=== PATIENT | male | born 1950 | race Caucasian/White ===

== ENCOUNTER → 2016-11-09 | Outpatient (CLI) | payer BC ==
--- NOTE | 2016-11-09 12:00 | ECHOS ---
DATE OF SERVICE: 11/09/2016 AGE: 66Y SEX: M HT: 72 WT: 230 lbs. Protocol Reggie: X Others: Stress Echo Stage: II Dur. of Exercise: 6 minutes *Heart Rate Blood Pressure *Rest: 91 Rest: 167/75 * *Max. Achieved: 151 Maximum BP: 183/93 85% PMHR: 100% PMHR: *METS: INDICATIONS: Chest pain. MEDICATIONS: Baseline rhythm is sinus mechanism, rate of 91, normal axis and intervals, occasional PVCs. Baseline blood pressure 167/75 mmHg. Patient exercised on Reggie protocol for 6 minutes reaching peak rate of 151 beats per minute, which is equal to 97% of maximum predicted heart rate; peak blood pressure 183/93 mmHg. Test was terminated secondary to fatigue. There was no chest pain. Electrocardiographic monitoring revealed occasional PVCs and one triplet at peak exercise. There was no evidence of diagnostic ischemic ST deviation. Baseline echocardiogram revealed normal wall motion. At peak exercise there was normal wall motion augmentation with no hypokinesis or dyskinesis. CONCLUSION: 1. Average exercise tolerance with a normal electrocardiograph response to exercise and occasional premature ventricular contractions and one triplet at peak exercise. 2. Normal stress echocardiogram with no evidence of stress-induced ischemia.
== END | disposition home or self-care (01) ==
LOC: RADNMMAIN 09:55
PROVIDERS: ATTEND Family Medicine
DX: R07.9 Chest pain, unspecified (principal); R53.83 Other fatigue
CPT/HCPCS: 93017; 93350

== ENCOUNTER → 2017-03-25 | Outpatient (CLI) | payer BC ==
[2017-03-25 09:48] LABS: Basophils # (A) 0.1 k/uL (0-0.2); Basophils % (A) 1 %; CH 33.5; CHCM 34.5; Eosinophils # (A) 0.3 k/uL (0-0.7); Eosinophils % (A) 3 %; HCT 51.1 % (39.0-53.0); HDW 2.53; HGB 16.9 gm/dL (13.0-17.5); Luc # (Auto) 0.13; Luc % (Auto) 2; Lymphocytes # (A) 2.2 k/uL (1.0-4.8); Lymphocytes % (A) 27 %; MCH 32.1 pg (25.0-35.0); MCV 97.4 fL (80.0-100.0); Mean Platelet Volume 7.7; Monocytes # (A) 0.5 k/uL (0-1.0); Monocytes % (A) 6 %; Neutrophils % (A) 62 %; RBC 5.25 m/uL (4.30-5.90); RDW 13.7 % (11.5-15.5); WBC 8.1 k/uL (3.8-10.6); WBC (Perox) 7.83
== END ==
LOC: LABWHC1 08:18
PROVIDERS: ATTEND Family Medicine
DX: R10.9 Unspecified abdominal pain (principal)
CPT/HCPCS: 36415; 85025

== ENCOUNTER 2018-03-26 05:35 | Inpatient (IN) | payer BC, MEDICARE ==
[2018-03-26 06:54] LABS: Basophils % (A) 0 %; Eosinophils # (A) 0.2 k/uL (0-0.7); Eosinophils % (A) 1 %; HCT 46.9 % (39.0-53.0); HGB 16.6 gm/dL (13.0-17.5); Lymphocytes # (A) 1.2 k/uL (1.0-4.8); Lymphocytes % (A) 8 %; MCH 32.2 pg (25.0-35.0); MCHC 35.3 g/dL (31.0-37.0); MCV 91.4 fL (80.0-100.0); Monocytes # (A) 0.5 k/uL (0-1.0); Monocytes % (A) 4 %; Neutrophils # (A) 12.2 k/uL (1.3-7.7); Neutrophils % (A) 86 %; Platelet Count 175 k/uL (150-450); RBC 5.13 m/uL (4.30-5.90); RDW 11.9 % (11.5-15.5); WBC 14.2 k/uL (3.8-10.6)
[2018-03-26 06:56] LABS: Appearance,Urine Clear (Clear); Bilirubin,Urine Negative (Negative); Blood,Urine Negative (Negative); Color,Urine Yellow; Glucose,Urine (UA) Negative (Negative); Ketones,Urine 2+ (Negative); Leukocyte Esterase,Urine Negative (Negative); Mucus,Urine Many /hpf; Nitrite,Urine Negative (Negative); PH, Urine 5.5 (5.0-8.0); Protein,Urine 1+ (Negative); RBC,Urine <1 /hpf (0-5); Specific Gravity,Urine 1.026 (1.001-1.035); Urobilinogen,Urine <2.0 mg/dL (<2.0); WBC,Urine <1 /hpf (0-5)
[2018-03-26 07:06] LABS: ALT 32 U/L (21-72); AST 27 U/L (17-59); Albumin 4.3 g/dL (3.5-5.0); Alkaline Phosphatase 45 U/L (38-126); Amylase 52 U/L (30-110); Anion Gap 11 mmol/L; Blood Urea Nitrogen 17 mg/dL (9-20); Calcium 9.7 mg/dL (8.4-10.2); Carbon Dioxide 19 mmol/L (22-30); Chloride 110 mmol/L (98-107); Glucose 140 mg/dL (74-99); Lipase 45 U/L (23-300); Potassium 4.6 mmol/L (3.5-5.1); Sodium 140 mmol/L (137-145); Total Bilirubin 0.9 mg/dL (0.2-1.3); Total Protein 6.8 g/dL (6.3-8.2)
--- NOTE | 2018-03-26 07:19 | XR ---
EXAMINATION TYPE: XR KUB DATE OF EXAM: 03/26/2018 6:56 AM CLINICAL HISTORY: History of diverticulitis with abdominal pain. TECHNIQUE: Two Upright KUB images of the abdomen are obtained. COMPARISON: CT abdomen August 20, 2013 and abdominal x-ray August 19, 2010 FINDINGS: Some paucity of bowel gas is redemonstrated. Gas is seen in nondistended stomach as well as scattered nondistended small and large bowel loops throughout the abdomen and pelvis. Slight S-shape d scoliosis is present. No pneumoperitoneum or suspicious calcification is seen. Facet arthropathy lo wer lumbar levels is noted. Lung bases are clear. IMPRESSION: Overall nonspecific but strongly favor nonobstructive bowel gas pattern.
[2018-03-26] MEDS ORDERED: SODIUM CHLORIDE 0.9% 1,000 ML IV STA (07:41)
[2018-03-26] MEDS ORDERED: ONDANSETRON 4 MG/2 ML VIAL IVP STA (07:45)
[2018-03-26] MEDS ORDERED: HYDROmorphone 1 MG/ML 1 ML SYRINGE IVP STA ×2 (07:45→09:00)
[2018-03-26] MEDS ORDERED: SODIUM CHLORIDE 0.9% 500 ML IV STA (07:46)
--- NOTE | 2018-03-26 07:48 | ED ---
General Adult HPI - General Chief complaint: Abdominal Pain Stated complaint: abd pain Time Seen by Provider: 03/26/18 07:31 Source: patient, family, RN notes reviewed Mode of arrival: ambulatory Limitations: no limitations - History of Present Illness Initial comments: Patient is a pleasant 8 he 7-year-old male presenting to the emergency Department with abdominal discomfort. Patient does have a history of similar symptoms previously associated with diverticulitis. Patient was admitted once in the past for this. Patient has had several episodes of loose stool. Onset of symptoms was around 24 hours ago. Discomfort is starting to become severe. Patient has some associated nausea and vomiting. No fevers. Discomfort is mostly in the umbilical region and inferior. - Related Data Allergies Allergy/AdvReac Type Severity Reaction Status Date / Time No Known Allergies Allergy Verified 03/26/18 05:49 Review of Systems ROS Statement: Those systems with pertinent positive or pertinent negative responses have been documented in the HPI. ROS Other: All systems not noted in ROS Statement are negative. Constitutional: Denies: fever Eyes: Denies: eye pain ENT: Denies: ear pain Respiratory: Denies: cough Cardiovascular: Denies: chest pain Endocrine: Denies: fatigue Gastrointestinal: Reports: abdominal pain, nausea, vomiting, diarrhea Genitourinary: Denies: dysuria Musculoskeletal: Denies: back pain Skin: Denies: rash Neurological: Denies: weakness Past Medical History Past Medical History: Hyperlipidemia, Hypertension Additional Past Medical History / Comment(s): Diverticulitis History of Any Multi-Drug Resistant Organisms: None Reported Past Surgical History: No Surgical Hx Reported Past Psychological History: No Psychological Hx Reported Smoking Status: Former smoker Past Alcohol Use History: Rare Past Drug Use History: Marijuana General Exam Limitations: no limitations General appearance: alert, in no apparent distress Head exam: Present: atraumatic Eye exam: Present: normal appearance Neck exam: Present: normal inspection Respiratory exam: Present: normal lung sounds bilaterally Cardiovascular Exam: Present: regular rate, normal rhythm Expanded Peripheral pulses: 2+: Posterior Tibialis (R), Posterior Tibialis (L), Dorsalis Pedis (R), Dorsalis Pedis (L) GI/Abdominal exam: Present: soft, tenderness (Mild tenderness inferior to the umbilical region), normal bowel sounds. Absent: distended, guarding, rebound, rigid, pulsatile mass Extremities exam: Present: normal inspection Neurological exam: Present: alert Psychiatric exam: Present: normal affect, normal mood Skin exam: Present: normal color Course Vital Signs 03/26/18 03/26/18 03/26/18 05:46 07:57 09:05 Temperature 98.4 F Pulse Rate 53 L 59 L 58 L Respiratory 18 16 16 Rate Blood Pressure 153/85 160/89 141/80 O2 Sat by Pulse 98 100 98 Oximetry - Reevaluation(s) Reevaluation #1: 03/26/18 10:16 Does not meet sepsis criteria Medical Decision Making - Medical Decision Making Patient reevaluated and improved following second dose of IV pain medication. Patient would prefer to stay in the hospital secondary to continued discomfort. Case was discussed in detail with Dr. Mendoza, covering for Dr. Johns, who will admit. Patient and family were updated on results and plan. - Lab Data Result diagrams: 03/26/18 06:43 03/26/18 06:43 Lab Results 03/26/18 03/26/18 03/26/18 Range/Units 06:43 06:43 06:43 WBC 14.2 H (3.8-10.6) k/uL RBC 5.13 (4.30-5.90) m/uL Hgb 16.6 (13.0-17.5) gm/dL Hct 46.9 (39.0-53.0) % MCV 91.4 (80.0-100.0) fL MCH 32.2 (25.0-35.0) pg MCHC 35.3 (31.0-37.0) g/dL RDW 11.9 (11.5-15.5) % Plt Count 175 (150-450) k/uL Neutrophils % 86 % Lymphocytes % 8 % Monocytes % 4 % Eosinophils % 1 % Basophils % 0 % Neutrophils # 12.2 H (1.3-7.7) k/uL Lymphocytes # 1.2 (1.0-4.8) k/uL Monocytes # 0.5 (0-1.0) k/uL Eosinophils # 0.2 (0-0.7) k/uL Basophils # 0.0 (0-0.2) k/uL Sodium 140 (137-145) mmol/L Potassium 4.6 (3.5-5.1) mmol/L Chloride 110 H (98-107) mmol/L Carbon Dioxide 19 L (22-30) mmol/L Anion Gap 11 mmol/L BUN 17 (9-20) mg/dL Creatinine 0.70 (0.66-1.25) mg/dL Est GFR (CKD-EPI)AfAm >90 (>60 ml/min/1.73 sqM) Est GFR (CKD-EPI)NonAf >90 (>60 ml/min/1.73 sqM) Glucose 140 H (74-99) mg/dL Calcium 9.7 (8.4-10.2) mg/dL Total Bilirubin 0.9 (0.2-1.3) mg/dL AST 27 (17-59) U/L ALT 32 (21-72) U/L Alkaline Phosphatase 45 (38-126) U/L Total Protein 6.8 (6.3-8.2) g/dL Albumin 4.3 (3.5-5.0) g/dL Amylase 52 (30-110) U/L Lipase 45 (23-300) U/L Urine Color Yellow Urine Appearance Clear (Clear) Urine pH 5.5 (5.0-8.0) Ur Specific Jay 1.026 (1.001-1.035) Urine Protein 1+ H (Negative) Urine Glucose (UA) Negative (Negative) Urine Ketones 2+ H (Negative) Urine Blood Negative (Negative) Urine Nitrite Negative (Negative) Urine Bilirubin Negative (Negative) Urine Urobilinogen <2.0 (<2.0) mg/dL Ur Leukocyte Esterase Negative (Negative) Urine RBC <1 (0-5) /hpf Urine WBC <1 (0-5) /hpf Urine Mucus Many H (None) /hpf - Radiology Data Radiology results: report reviewed (Computed tomography scan of the abdomen pelvis concerning for mild diverticulitis.), image reviewed (KUB shows no acute process.) Disposition Clinical Impression: Diverticulitis Disposition: ADMITTED IP TO THIS HOSP Is patient prescribed a controlled substance at d/c from ED?: No Referrals: Nathanael Johns MD [Primary Care Provider] - 1-2 days Decision Time: 10:16
--- NOTE | 2018-03-26 09:23 | CT ---
EXAMINATION TYPE: CT abdomen pelvis w con DATE OF EXAM: 03/26/2018 COMPARISON: 08/20/2013 INDICATION: Abdomen pain DLP: 1282.2 mGycm, Automated exposure control for dose reduction was used. CONTRAST: 100 mL of Isovue 300. Study performed without Oral Contrast TECHNIQUE: Axial images were obtained from above the diaphragm to the pubic rami in the axial plane a t 5 mm thick sections. Reconstructed images are reviewed on the computer in the coronal plane. FINDINGS: Limited CT sections are obtained the lung bases. The lung bases are clear. CT ABDOMEN: Liver: Normal Spleen: Normal Pancreas: Normal Adrenal glands: The adrenal glands are normal. Gallbladder: Normal Kidneys: No masses are evident. No hydronephrosis is present. Peripelvic cysts are present on the l eft kidney. Delayed images were obtained through the kidneys, which remain unremarkable. Aorta: Vascular calcification is within the aorta. Mid abdominal aorta measures 2.9 cm. Some minim al fusiform prominence is present. Inferior vena cava: Normal. CT PELVIS: There appears to be some subtle inflammatory change adjacent to scattered diverticulum within the pro ximal sigmoid colon region left lower quadrant. Mild wall thickening of the distal descending colon w ith adjacent diverticulum are present. Correlate for mild diverticulitis. Diverticuli are within the distal sigmoid colon without adjacent inflammatory change or wall thickening. There are additional sc attered diverticuli within the hepatic flexure, transverse colon, descending colon. Study is performe d without oral contrast causing some limitation on evaluation. Appendix: Normal as visualized. Urinary bladder: Normal. Genitourinary structures: Prostate appears slightly prominent with scattered calcification. Osseous structures: No suspicious lytic or sclerotic lesions. Degenerative disc changes present L5-S1 . IMPRESSIONS: 1. Mild acute diverticulitis proximal sigmoid colon
[2018-03-26] MEDS ORDERED: ONDANSETRON 4 MG/2 ML VIAL IVP PRN (10:16)
[2018-03-26] MEDS ORDERED: ACETAMINOPHEN TAB 325 MG TAB PO PRN (10:16)
[2018-03-26] MEDS ORDERED: NALOXONE 0.4 MG/ML 1 ML VIAL IV PRN (10:16)
[2018-03-26] MEDS ORDERED: LEVOFLOXACIN 500MG-D5W PMX 500 MG in DEXTROSE/WATER 1 100ML.BAG IVPB STA (10:17)
[2018-03-26] MEDS ORDERED: metroNIDAZOLE-NS PMX 500 MG in SALINE 1 100ML.BAG IVPB STA (10:18)
[2018-03-26] MEDS: SODIUM CHLORIDE 0.9% 1,000 ML IV SCH ×2 (11:34→17:02)
[2018-03-26] MEDS: HYDROmorphone 1 MG/ML 1 ML SYRINGE IVP PRN ×3 (13:02→21:42)
[2018-03-26] MEDS: metroNIDAZOLE-NS PMX 500 MG in SALINE 1 100ML.BAG IVPB SCH (15:08)
--- NOTE | 2018-03-26 19:01 | P.GSCN ---
History of Present Illness Consult date: 03/26/18 Reason for Consult: Diverticulitis History of present illness: Patient came to the hospital early this morning with a 2-3 day history of lower abdominal pain. He has a history of 3-4 episodes of diverticulitis in the past. One of these episodes didn't require hospitalization. Last colonoscopy 2 -3 years ago. He was nauseated. Had a few small loose stools at home over the last 2 days. No fevers. CAT scan was obtained which revealed mild sigmoid diverticulitis. Patient's white blood cell count was slightly elevated. He is afebrile currently. Patient states his pain is actually for the most part resolved by now. He is somewhat hungry. 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 History of Any Multi-Drug Resistant Organisms: None Reported Past Surgical History: No Surgical Hx Reported Past Psychological History: No Psychological Hx Reported Smoking Status: Never smoker Past Alcohol Use History: Rare Past Drug Use History: Marijuana Medications and Allergies Home Medications Medication Instructions Recorded Confirmed Type Aspirin EC [Ecotrin] 325 mg PO HS 03/26/18 03/26/18 History Atenolol [Tenormin] 50 mg PO HS 03/26/18 03/26/18 History Cholecalciferol [Vitamin D3] 5,000 unit PO HS 03/26/18 03/26/18 History Doxazosin [Cardura] 4 mg PO HS 03/26/18 03/26/18 History Finasteride [Proscar] 5 mg PO HS 03/26/18 03/26/18 History HYDROcodone/APAP 10-325MG [[place] 1 tab PO BID PRN 03/26/18 03/26/18 History 10-325] Loratadine [Claritin] 10 mg PO HS 03/26/18 03/26/18 History Omeprazole 20 mg PO HS 03/26/18 03/26/18 History Rosuvastatin Calcium [Crestor] 40 mg PO HS 03/26/18 03/26/18 History Allergies Allergy/AdvReac Type Severity Reaction Status Date / Time No Known Allergies Allergy Verified 03/26/18 10:43 Surgical - Exam Vital Signs Temp Pulse Resp BP Pulse Ox 98.4 F 53 L 18 153/85 98 03/26/18 05:46 03/26/18 05:46 03/26/18 05:46 03/26/18 05:46 03/26/18 05:46 Physical exam: General: Well-developed, well-nourished HEENT: Normocephalic, sclerae nonicteric Abdomen: Nontender, nondistended Extremities: No edema Neuro: Alert and oriented Results - Labs 03/26/18 06:43 03/26/18 06:43 Abnormal Lab Results - Last 24 Hours (Table) 03/26/18 03/26/18 03/26/18 Range/Units 06:43 06:43 06:43 WBC 14.2 H (3.8-10.6) k/uL Neutrophils # 12.2 H (1.3-7.7) k/uL Chloride 110 H (98-107) mmol/L Carbon Dioxide 19 L (22-30) mmol/L Glucose 140 H (74-99) mg/dL Urine Protein 1+ H (Negative) Urine Ketones 2+ H (Negative) Urine Mucus Many H (None) /hpf Diabetes panel 03/26/18 Range/Units 06:43 Sodium 140 (137-145) mmol/L Potassium 4.6 (3.5-5.1) mmol/L Chloride 110 H (98-107) mmol/L Carbon Dioxide 19 L (22-30) mmol/L BUN 17 (9-20) mg/dL Creatinine 0.70 (0.66-1.25) mg/dL Glucose 140 H (74-99) mg/dL Calcium 9.7 (8.4-10.2) mg/dL AST 27 (17-59) U/L ALT 32 (21-72) U/L Alkaline Phosphatase 45 (38-126) U/L Total Protein 6.8 (6.3-8.2) g/dL Albumin 4.3 (3.5-5.0) g/dL Calcium panel 03/26/18 Range/Units 06:43 Calcium 9.7 (8.4-10.2) mg/dL Albumin 4.3 (3.5-5.0) g/dL Pituitary panel 03/26/18 Range/Units 06:43 Sodium 140 (137-145) mmol/L Potassium 4.6 (3.5-5.1) mmol/L Chloride 110 H (98-107) mmol/L Carbon Dioxide 19 L (22-30) mmol/L BUN 17 (9-20) mg/dL Creatinine 0.70 (0.66-1.25) mg/dL Glucose 140 H (74-99) mg/dL Calcium 9.7 (8.4-10.2) mg/dL Adrenal panel 03/26/18 Range/Units 06:43 Sodium 140 (137-145) mmol/L Potassium 4.6 (3.5-5.1) mmol/L Chloride 110 H (98-107) mmol/L Carbon Dioxide 19 L (22-30) mmol/L BUN 17 (9-20) mg/dL Creatinine 0.70 (0.66-1.25) mg/dL Glucose 140 H (74-99) mg/dL Calcium 9.7 (8.4-10.2) mg/dL Total Bilirubin 0.9 (0.2-1.3) mg/dL AST 27 (17-59) U/L ALT 32 (21-72) U/L Alkaline Phosphatase 45 (38-126) U/L Total Protein 6.8 (6.3-8.2) g/dL Albumin 4.3 (3.5-5.0) g/dL Assessment and Plan (1) Diverticulitis Narrative/Plan: Continue antibiotic. Begin diet. Possible discharge tomorrow on oral antibiotics. Current Visit: Yes Status: Acute Code(s): K57.92 - DVTRCLI OF INTEST, PART UNSP, W/O PERF OR ABSCESS W/O BLEED SNOMED Code(s): 345378313
--- NOTE | 2018-03-26 19:25 | HP ---
HISTORY AND PHYSICAL CHIEF COMPLAINT: A 2-3 day history of diarrhea, abdominal pain with nausea and vomiting. HISTORY OF PRESENT ILLNESS: Another admission for this 67-year-old white male who has mild essential hypertension, but has otherwise been in fairly good health. Several years ago, he had an episode of diverticulitis requiring inpatient antibiotic therapy. Several days ago, he started to have some diarrhea and then he went on to develop lower abdominal pain and then some nausea and vomiting with chills and he came to the emergency room. White count was 14,000 and he was admitted with a diagnosis of diverticulitis. REVIEW OF SYSTEMS: Otherwise unremarkable. He has had no melena, hematochezia, etc. Past medical history, family history, personal and social histories are unremarkable and noncontributory otherwise. At home, he is on: 1. Rosuvastatin. 2. Omeprazole. 3. Loratadine. 4. Vicodin. 5. Finasteride. 6. Doxazosin. 7. Vitamin D3. 8. Atenolol and. 9. Aspirin. He is not allergic to any medication. He does not smoke or drink. PHYSICAL EXAMINATION: Temperature is 98.4. Pulse is 58. Blood pressure is 138/81. In general, appeared to be well-developed, well-nourished, in no acute distress. He is slightly overweight. Face was flushed. Head, ears, eyes, nose, mouth, and throat were normal. Neck veins were not distended. The chest is clear. Cardiac is normal sinus rhythm. The abdomen is slightly distended and he was tender in the lower abdomen. There are no definite masses. Bowel sounds present. EXTREMITIES: Normal. Neurologically, he is intact. He is admitted to the hospital with the diagnoses: 1. Diverticulitis. 2. Hypertension. 3. Hyperlipidemia. 4. Benign prostatic hypertrophy. PLAN: 1. Bed rest. 2. IV fluids. 3. IV antibiotics. 4. General Surgery consult for follow. MMODL / IJN: [id number] /
[2018-03-26] MEDS: DOXAZOSIN 4 MG TAB PO SCH (21:44)
[2018-03-26] MEDS: ASPIRIN 325 MG TAB PO SCH (21:44)
[2018-03-26] MEDS: LORATADINE 10 MG TAB PO SCH (21:44)
[2018-03-26] MEDS: FINASTERIDE 5 MG TAB PO SCH (21:45)
[2018-03-26] MEDS: PANTOPRAZOLE 40 MG TABLET PO SCH (21:45)
[2018-03-26] MEDS: ATENOLOL 50 MG TAB PO SCH (21:45)
[2018-03-27] MEDS: metroNIDAZOLE-NS PMX 500 MG in SALINE 1 100ML.BAG IVPB SCH ×2 (00:15→07:11)
[2018-03-27] MEDS: SODIUM CHLORIDE 0.9% 1,000 ML IV SCH ×3 (06:33→23:13)
[2018-03-27] MEDS: HYDROmorphone 1 MG/ML 1 ML SYRINGE IVP PRN ×2 (06:38→12:16)
[2018-03-27] MEDS: HYDROmorphone 0.5 MG/0.5 ML SYRINGE IVP PRN ×2 (07:13→13:06)
[2018-03-27 07:57] LABS: Basophils % (A) 0 %; Eosinophils # (A) 0.2 k/uL (0-0.7); Eosinophils % (A) 2 %; HCT 41.6 % (39.0-53.0); Lymphocytes # (A) 2.2 k/uL (1.0-4.8); Lymphocytes % (A) 34 %; MCH 31.5 pg (25.0-35.0); MCHC 33.7 g/dL (31.0-37.0); MCV 93.5 fL (80.0-100.0); Monocytes # (A) 0.4 k/uL (0-1.0); Monocytes % (A) 6 %; Neutrophils # (A) 3.7 k/uL (1.3-7.7); Neutrophils % (A) 56 %; Platelet Count 154 k/uL (150-450); RBC 4.45 m/uL (4.30-5.90); RDW 12.2 % (11.5-15.5); WBC 6.7 k/uL (3.8-10.6)
[2018-03-27 08:15] LABS: Anion Gap 8 mmol/L; Blood Urea Nitrogen 12 mg/dL (9-20); Calcium 8.7 mg/dL (8.4-10.2); Carbon Dioxide 22 mmol/L (22-30); Chloride 110 mmol/L (98-107); Glucose 99 mg/dL (74-99); Sodium 140 mmol/L (137-145)
[2018-03-27] MEDS ORDERED: LEVOFLOXACIN 500MG-D5W PMX 500 MG in DEXTROSE/WATER 1 100ML.BAG IVPB SCH (09:00)
[2018-03-27] MEDS ORDERED: HYDROmorphone 1 MG/ML 1 ML SYRINGE IVP PRN (13:29)
--- NOTE | 2018-03-27 14:28 | P.PN ---
<Tiffany Packlinda Hale - Last Filed: 03/27/18 14:11> Subjective Progress Note Date: 03/27/18 67-year-old male sitting up in bed "hungry" patient stated that he did have an episode this morning of lower quadrant abdominal pain needed to have IV dilaudid given this morning states the abdominal, pain is gone has been up ambulating in the hallway tolerating a diet. Patient states he takes Simpson at home for chronic osteoarthritis pain Objective - Vital Signs Vital signs: Vital Signs Temp 99.6 F 03/27/18 06:55 Pulse 50 L 03/27/18 06:55 Resp 16 03/27/18 06:55 BP 125/77 03/27/18 06:55 Pulse Ox 96 03/27/18 06:55 Intake & Output 03/26/18 03/27/18 03/27/18 18:59 06:59 18:59 Intake Total 738 1200 500 Balance 738 1200 500 Weight 102.058 kg 102.058 kg Intake: Intake, IV Titration 700 Amount Sodium Chloride 0.9% 500 600 ml @ 999 mls/hr IV .Q31M [facility] Rx#:[id number] metroNIDAZOLE-NS PMX 500 100 mg In Saline 1 100ml.bag @ 100 mls/hr IVPB Q8HR [facility] Rx#:[id number] Oral 738 500 500 Other: Voiding Method Toilet # Voids 1 2 - Exam Physical exam Pleasant 67-year-old male sitting up in bed appearing in no acute distress Lungs adequate air movement bilaterally on room air Heart S1-S2 audible and regular Abdomen soft nondistended nontender bowel tones present tolerating diet no nausea no vomiting Extremities no edema noted. - Labs CBC & Chem 7: 03/27/18 07:18 03/27/18 07:18 Labs: Abnormal Lab Results - Last 24 Hours (Table) 03/27/18 Range/Units 07:18 Chloride 110 H (98-107) mmol/L Assessment and Plan Assessment: Impression Present on admission bilateral lower abdominal pain suspect due to acute diverticulitis History of prior episodes of diverticulitis CAT scan of pain on admission report indicate mild sigmoid diverticulitis Present on admission leukocytosis Plan Advance diet as tolerated Increase activity Continue Levaquin and Flagyl Pain control Anticipate discharge from a surgical perspective within the next 24 hours Will follow in the outpatient setting The above impression and plan of care have been discussed and directed by signing physician. Caron Pack nurse practitioner acting as scribe for signing physician. <Dewey Walden - Last Filed: 03/27/18 18:00> Objective - Vital Signs Vital signs: Vital Signs Temp 97.8 F 03/27/18 13:45 Pulse 50 L 03/27/18 17:15 Resp 16 03/27/18 17:15 BP 117/63 03/27/18 13:45 Pulse Ox 96 03/27/18 13:45 Intake & Output 03/26/18 03/27/18 03/27/18 18:59 06:59 18:59 Intake Total 738 1200 500 Balance 738 1200 500 Weight 102.058 kg 102.058 kg Intake: Intake, IV Titration 700 Amount Sodium Chloride 0.9% 500 600 ml @ 999 mls/hr IV .Q31M [facility] Rx#:[id number] metroNIDAZOLE-NS PMX 500 100 mg In Saline 1 100ml.bag @ 100 mls/hr IVPB Q8HR [facility] Rx#:[id number] Oral 738 500 500 Other: Voiding Method Toilet # Voids 1 2 3 - Labs CBC & Chem 7: 03/27/18 07:18 03/27/18 07:18 Labs: Abnormal Lab Results - Last 24 Hours (Table) 03/27/18 Range/Units 07:18 Chloride 110 H (98-107) mmol/L Assessment and Plan Assessment: As above. Patient had no pain last night however this morning pain recurred slightly. He is hungry. Asking for solid food. Has passed flatus but no bowel movement. White blood cell count was normal. Low-grade temp. Continue antibiotics. Advance diet to full liquids and further advance tomorrow if tolerating. (1) Diverticulitis Current Visit: Yes Status: Acute Code(s): K57.92 - DVTRCLI OF INTEST, PART UNSP, W/O PERF OR ABSCESS W/O BLEED SNOMED Code(s): 192722128
[2018-03-27] MEDS: metroNIDAZOLE 500 MG TAB PO SCH ×2 (14:44→20:46)
[2018-03-27] MEDS: HYDROcodone/APAP 10-325MG 1 EACH TAB PO PRN (18:27)
[2018-03-27] MEDS: ASPIRIN 325 MG TAB PO SCH (20:45)
[2018-03-27] MEDS: FINASTERIDE 5 MG TAB PO SCH (20:46)
[2018-03-27] MEDS: PANTOPRAZOLE 40 MG TABLET PO SCH (20:46)
[2018-03-27] MEDS: DOXAZOSIN 4 MG TAB PO SCH (20:46)
[2018-03-27] MEDS: LORATADINE 10 MG TAB PO SCH (20:46)
[2018-03-27] MEDS: ATENOLOL 50 MG TAB PO SCH (23:13)
--- NOTE | 2018-03-28 01:50 | P.PN ---
Subjective Progress Note Date: 03/28/18 Principal diagnosis: Acute sigmoid diverticulitis Patient is a 67-year-old male with a known history of hypertension, hyperlipidemia and previous history of diverticulitis came to ER with complaints of abdominal pain mainly in the lower abdomen and left side worsening for the last 2-3 days. Otherwise patient denied any blood in the stool. Patient does have several episodes of loose stool. Patient does have some nausea and o's of vomiting. Denied any recent illnesses or unusual food intake. No commerce of chest pain or shortness of breath. Denied any fever or chills. CT of abdomen pelvis showed mild sigmoid diverticulitis. 03/27/2018 Patient says that his pain is better. No nausea vomiting. No acute overnight issues. Leukocytosis is improving. Patient was started on clear liquids and advance as tolerated. Anticipate discharge next 24 hours. Patient is being continued on antibiotics in the form of Levaquin and Flagyl. All other review of systems negative except the above Current medications reviewed Objective - Vital Signs Vital signs: Vital Signs Temp 98.2 F 03/27/18 23:00 Pulse 53 L 03/27/18 23:00 Resp 18 03/27/18 23:00 BP 133/80 03/27/18 23:00 Pulse Ox 97 03/27/18 23:00 Intake & Output 03/27/18 03/27/18 03/28/18 06:59 18:59 06:59 Intake Total 1200 750 500 Balance 1200 750 500 Weight 102.058 kg Intake: Intake, IV Titration 700 Amount Sodium Chloride 0.9% 500 600 ml @ 999 mls/hr IV .Q31M [facility] Rx#:[id number] metroNIDAZOLE-NS PMX 500 100 mg In Saline 1 100ml.bag @ 100 mls/hr IVPB Q8HR [facility] Rx#:[id number] Oral 500 750 500 Other: Voiding Method Toilet Toilet # Voids 2 3 2 - Exam PHYSICAL EXAMINATION: Patient is lying in the bed comfortably, no acute distress, awake alert and oriented.. HEENT: Normocephalic. Neck is supple. Pupils reactive. Nostrils clear. Oral cavity is moist. Ears reveal no drainage. Neck reveals no JVD, carotid bruits, or thyromegaly. CHEST EXAMINATION: Trachea is central. Symmetrical expansion. Lung dunlap clear to auscultation and percussion. CARDIAC: Normal S1, S2 with no gallops. No murmurs ABDOMEN: Soft. Bowel sounds normal. No organomegaly. No abdominal bruits. Extremities: reveal no edema. No clubbing or cyanosis Neurologically awake, alert, oriented x3 with well-coordinated movements. No focal deficits noted Skin: No rash or skin lesions. Psychiatric: Coperative. Nonsuicidal Musculoskeletal: No joint swelling or deformity. Normal range of motion. - Labs CBC & Chem 7: 03/27/18 07:18 03/27/18 07:18 Labs: Abnormal Lab Results - Last 24 Hours (Table) 03/27/18 Range/Units 07:18 Chloride 110 H (98-107) mmol/L Assessment and Plan Assessment: Acute sigmoid diverticulitis Previous history of diverticulitis Hypertension Hyperlipidemia BPH DVT prophylaxis Plan: Patient be continued on pain medications and antibiotics and IV fluids. Patient will be started on clear liquids and advance as tolerated. General surgery is following. Further recommendations based on the clinical course. Anticipate discharged tomorrow. Time with Patient: Greater than 30
[2018-03-28] MEDS ORDERED: LEVOFLOXACIN 500 MG TAB PO SCH (09:00)
[2018-03-28] MEDS: metroNIDAZOLE 500 MG TAB PO SCH ×2 (09:07→14:59)
[2018-03-28] MEDS: HYDROcodone/APAP 10-325MG 1 EACH TAB PO PRN (09:08)
--- NOTE | 2018-03-28 11:49 | P.PN ---
<Caron Pack - Last Filed: 03/28/18 11:43> Subjective Progress Note Date: 03/28/18 67-year-old male seen this morning. Patient reports having an episode last evening diffuse abdominal pain requiring [place] be given . Additionally patient reports this morning had another incident of abdominal cramping states was given [place] at 9 AM this morning with no significant relief. Patient states he did have a small loose watery bowel movement small amounts morning no nausea tolerating a diet active bowel tones present nondistended abdomen Objective - Vital Signs Vital signs: Vital Signs Temp 98.3 F 03/28/18 07:00 Pulse 54 L 03/28/18 07:00 Resp 18 03/28/18 07:00 BP 133/81 03/28/18 07:00 Pulse Ox 96 03/28/18 07:00 Intake & Output 03/27/18 03/28/18 03/28/18 18:59 06:59 18:59 Intake Total 750 800 Balance 750 800 Weight 102.058 kg Intake: Oral 750 800 Other: Voiding Method Toilet Toilet # Voids 3 2 - Exam Physical exam 67-year-old male sitting up in bed appears in no acute distress does report had an incident this morning of abdominal cramping Lungs adequate air movement bilaterally on room air Heart S1-S2 audible regular abdomen soft not distended no facial grimacing with palpitation to the abdominal wall reports having diffuse abdominal cramping slightly improved from admission but continues to persist no nausea no vomiting 1 small loose watery stool this morning per patient report Extremities no edema - Labs CBC & Chem 7: 03/27/18 07:18 03/27/18 07:18 Assessment and Plan Assessment: Impression Present on admission bilateral lower abdominal pain suspect due to acute diverticulitis History of prior episodes of diverticulitis CAT scan of pain on admission report indicate mild sigmoid diverticulitis Present on admission leukocytosis Plan Advance diet as tolerated Increase activity Continue Levaquin and Flagyl Pain control Anticipate discharge from a surgical perspective within the next 24 - 48 hours Will follow in the outpatient setting The above impression and plan of care have been discussed and directed by signing physician. Caron Pack nurse practitioner acting as scribe for signing physician. <Dewey Walden - Last Filed: 03/28/18 12:15> Objective - Vital Signs Vital signs: Vital Signs Temp 98.3 F 03/28/18 07:00 Pulse 54 L 03/28/18 07:00 Resp 18 03/28/18 07:00 BP 133/81 03/28/18 07:00 Pulse Ox 96 03/28/18 07:00 Intake & Output 03/27/18 03/28/18 03/28/18 18:59 06:59 18:59 Intake Total 750 800 Balance 750 800 Weight 102.058 kg Intake: Oral 750 800 Other: Voiding Method Toilet Toilet # Voids 3 2 - Labs CBC & Chem 7: 03/27/18 07:18 03/27/18 07:18 Assessment and Plan Assessment: Patient doing well at this time. Pain improved. Tolerating diet. Agree with plans for discharge. Outpatient follow-up in 2-3 weeks advised. (1) Diverticulitis Current Visit: Yes Status: Acute Code(s): K57.92 - DVTRCLI OF INTEST, PART UNSP, W/O PERF OR ABSCESS W/O BLEED SNOMED Code(s): 314693993
[2018-03-28 15:08] VITALS: BP 137/72; PULSE 51; RESP 16; TEMP 97.7
== END 2018-03-28 15:08 | disposition home or self-care (01) | DRG 392 ==
LOC: EC 05:35 → 4MS4W 10:16
PROVIDERS: ADMIT Family Medicine; ATTEND Family Medicine
DX: K57.32 Diverticulitis of large intestine without perforation or abscess without bleeding (principal); E78.5 Hyperlipidemia, unspecified; G89.29 Other chronic pain; I10 Essential (primary) hypertension; M19.90 Unspecified osteoarthritis, unspecified site; N40.0 Benign prostatic hyperplasia without lower urinary tract symptoms; Z79.82 Long term (current) use of aspirin; Z87.891 Personal history of nicotine dependence
CPT/HCPCS: 36415; 74018; 74177; 80048; 80053; 81001; 82150; 83690; 85025; 96361; 96374; 96375; 96376; 99285

== ENCOUNTER 2018-11-21 06:14 | Inpatient (IN) | payer MEDICARE ==
[2018-11-21] MEDS ORDERED: SODIUM CHLORIDE 0.9% 1,000 ML IV STA (06:22)
[2018-11-21] MEDS ORDERED: HYDROmorphone 0.5 MG/0.5 ML SYRINGE IVP STA (06:49)
--- NOTE | 2018-11-21 06:59 | ED ---
Abdominal Pain HPI - General Source: patient Mode of arrival: ambulatory Limitations: no limitations <Kelly Nelson - Last Filed: 11/21/18 08:27> <Josh Stein - Last Filed: 11/21/18 09:17> - General Chief Complaint: Abdominal Pain Stated Complaint: Diverticulitis Complications Time Seen by Provider: 11/21/18 06:21 - History of Present Illness Initial Comments: He is a 68-year-old gentleman with a past medical history of recurrent diverticulitis for which she was hospitalized in March of last year, since that time he has had a couple of episodes of left lower quadrant abdominal pain for which she is followed with his primary care physician on outpatient basis. Patient reports that he woke at 3 AM on Saturday morning with severe stabbing pain in the left lower quadrant he had nausea, vomiting and diarrhea at that time. He reports that he called his primary care physician and made an appointment for 9 AM today however since onset of symptoms she is progressively worsened and this morning the pain became unbearable prompted him to come to the ER for evaluation. Patient reports that the nausea is still present he has not been eating or drinking much so they vomiting has decreased and he is noticed that the diarrhea has slowed down. Diarrhea was nonbloody in nature. However the pain is progressively worsening and is not controlled with home medications. She reports that he has previously been evaluated by surgery and there has been discussion of possible colectomy due to the recurrent episodes of diverticulitis however he has not followed up in a number of months. (Kelly Nelson) - Related Data Home Medications Medication Instructions Recorded Confirmed Aspirin EC [Ecotrin] 325 mg PO HS 03/26/18 11/21/18 Atenolol [Tenormin] 50 mg PO HS 03/26/18 11/21/18 Cholecalciferol [Vitamin D3] 5,000 unit PO HS 03/26/18 11/21/18 Doxazosin [Cardura] 4 mg PO HS 03/26/18 11/21/18 Finasteride [Proscar] 5 mg PO HS 03/26/18 11/21/18 HYDROcodone/APAP 10-325MG [[place] 1 tab PO BID PRN 03/26/18 11/21/18 10-325] Loratadine [Claritin] 10 mg PO HS 03/26/18 11/21/18 Omeprazole 20 mg PO HS 03/26/18 11/21/18 Rosuvastatin Calcium [Crestor] 40 mg PO HS 03/26/18 11/21/18 Allergies Allergy/AdvReac Type Severity Reaction Status Date / Time No Known Allergies Allergy Verified 11/21/18 07:44 Review of Systems ROS Other: All systems not noted in ROS Statement are negative. <Kelly Nelson - Last Filed: 11/21/18 08:27> ROS Other: All systems not noted in ROS Statement are negative. <Josh Stein - Last Filed: 11/21/18 09:17> ROS Statement: Those systems with pertinent positive or pertinent negative responses have been documented in the HPI. Past Medical History Past Medical History: Hyperlipidemia, Hypertension Additional Past Medical History / Comment(s): arthritis, Diverticulitis, m elenoma on arm History of Any Multi-Drug Resistant Organisms: None Reported Past Surgical History: No Surgical Hx Reported Past Psychological History: No Psychological Hx Reported Smoking Status: Never smoker Past Alcohol Use History: Rare Past Drug Use History: Marijuana <Kelly Nelson - Last Filed: 11/21/18 08:27> General Exam Limitations: no limitations <Kelly Nelson - Last Filed: 11/21/18 08:27> - General Exam Comments Initial Comments: Physical Exam GENERAL: Patient is well-developed and well-nourished. Patient is nontoxic and well-hydrated, appears uncomfortable HENT: Normocephalic, Atraumatic. EYES: PERRL, EOMI PULMONARY: Unlabored respirations. No audible rales rhonchi or wheezing was noted. CARDIOVASCULAR: There is a regular rate and rhythm without any murmurs gallops or rubs. ABDOMEN: Soft Tender to palpation LLQ and suprapubic region SKIN: Skin is clear with no lesions or rashes and otherwise unremarkable. : Deferred NEUROLOGIC: Patient is alert and oriented x3. Moving all extremities spontaneously MUSCULOSKELETAL: Normal extremities with adequate strength and full range of motion. No lower extremity swelling or edema. No calf tenderness. PSYCHIATRIC: Normal psychiatric evaluation. Limitations: no limitations (Kelly Nelson) Course <Josh Stein - Last Filed: 11/21/18 09:17> Vital Signs 11/21/18 11/21/18 06:23 07:36 Temperature 97.8 F 96.9 F L Pulse Rate 53 L 60 Respiratory 16 20 Rate Blood Pressure 139/87 141/84 O2 Sat by Pulse 98 98 Oximetry - Reevaluation(s) Reevaluation #1: 11/21/18 09:16 The patient's case was endorsed me by Dr. Nelson at our shift change. Labs are pending Dr. Johns did come the emergency department see the patient patient will be admitted for evaluation and treatment of suspected diverticulitis and intractable abdominal pain (Josh Stein) Medical Decision Making - Lab Data Result diagrams: 11/21/18 06:45 <Kelly Nelson - Last Filed: 11/21/18 08:27> - Lab Data Result diagrams: 11/21/18 06:45 - Radiology Data Radiology results: report reviewed (Imaging was nonspecific no definite acute findings.), image reviewed <Josh Stein - Last Filed: 11/21/18 09:17> - Medical Decision Making Patient was seen and evaluated history is obtained from the patient and review of medical record History concerning for recurrent diverticulitis Labs and imaging were ordered CT scan reveals no acute findings CBC was unremarkable Lactic acid negative UA with no signs of infection Patient care was discussed with Dr. Johns, patient with intractable abdominal pain, no signs of diverticulitis on CT - CMP, Lipase and amylase pending Dr Stein to follow up on labs and disposition (Kelly Nelson) - Lab Data Lab Results 11/21/18 11/21/18 11/21/18 Range/Units 06:45 06:45 07:40 WBC 8.7 (3.8-10.6) k/uL RBC 5.29 (4.30-5.90) m/uL Hgb 17.0 (13.0-17.5) gm/dL Hct 50.1 (39.0-53.0) % MCV 94.7 (80.0-100.0) fL MCH 32.1 (25.0-35.0) pg MCHC 33.9 (31.0-37.0) g/dL RDW 12.3 (11.5-15.5) % Plt Count 185 (150-450) k/uL Neutrophils % 73 % Lymphocytes % 17 % Monocytes % 8 % Eosinophils % 1 % Basophils % 0 % Neutrophils # 6.4 (1.3-7.7) k/uL Lymphocytes # 1.4 (1.0-4.8) k/uL Monocytes # 0.7 (0-1.0) k/uL Eosinophils # 0.1 (0-0.7) k/uL Basophils # 0.0 (0-0.2) k/uL Plasma Lactic Acid Tom 1.6 (0.7-2.0) mmol/L Urine Color Yellow Urine Appearance Clear (Clear) Urine pH 6.0 (5.0-8.0) Ur Specific [place] >1.050 H (1.001-1.035) Urine Protein Trace H (Negative) Urine Glucose (UA) Negative (Negative) Urine Ketones 1+ H (Negative) Urine Blood Negative (Negative) Urine Nitrite Negative (Negative) Urine Bilirubin Negative (Negative) Urine Urobilinogen <2.0 (<2.0) mg/dL Ur Leukocyte Esterase Negative (Negative) Disposition Is patient prescribed a controlled substance at d/c from ED?: No <Kelly Nelson - Last Filed: 11/21/18 08:27> <Josh Stein - Last Filed: 11/21/18 09:17> Clinical Impression: Abdominal pain, Intractable abdominal pain Disposition: ADMITTED IP TO THIS HOSP Condition: Stable Referrals: Nathanael Johns MD [Primary Care Provider] - 1-2 days
[2018-11-21 07:01] LABS: Basophils % (A) 0 %; Eosinophils # (A) 0.1 k/uL (0-0.7); Eosinophils % (A) 1 %; HCT 50.1 % (39.0-53.0); Lymphocytes # (A) 1.4 k/uL (1.0-4.8); Lymphocytes % (A) 17 %; MCH 32.1 pg (25.0-35.0); MCHC 33.9 g/dL (31.0-37.0); MCV 94.7 fL (80.0-100.0); Mean Platelet Volume 10.1; Monocytes # (A) 0.7 k/uL (0-1.0); Monocytes % (A) 8 %; Neutrophils # (A) 6.4 k/uL (1.3-7.7); Neutrophils % (A) 73 %; Platelet Count 185 k/uL (150-450); RBC 5.29 m/uL (4.30-5.90); RDW 12.3 % (11.5-15.5); WBC 8.7 k/uL (3.8-10.6)
--- NOTE | 2018-11-21 07:43 | CT ---
EXAMINATION TYPE: CT abdomen pelvis w con DATE OF EXAM: 11/21/2018 COMPARISON: 03/26/2018 HISTORY: Pain CT DLP: 1162.3 mGycm CONTRAST: CT scan of the abdomen and pelvis is performed without Oral Contrast and with IV Contrast, patient in jected with 100 mL of Isovue 300. FINDINGS: LUNG BASES-: No visible nodule. No infiltrate. LIVER/GB: No calcified gallstones. Mild hepatic steatosis. No space occupying hepatic lesion. Bilia ry tree is of normal caliber. PANCREAS: No inflammation. No distinct mass. SPLEEN: No splenic enlargement. No lesion seen. ADRENALS: Thickening adrenal glands may reflect hyperplasia. KIDNEYS/BLADDER: No hydronephrosis. No nephrolithiasis. No distinct renal mass. Urinary bladder g rossly unremarkable. BOWEL: Scattered colonic diverticulosis without diverticulitis. Normal appendix. Normal bowel calibe r. No inflammation. GENITAL ORGANS: No gross abnormality. LYMPH NODES: No greater than 1cm abdominal or pelvic lymph nodes are appreciated. AORTA: No significant abnormality. OSSEOUS STRUCTURES: Severe degenerative changes lower lumbar spine. OTHER: No significant additional abnormality is seen. IMPRESSION: 1. No acute process identified to account for the patient's symptoms. Sigmoid diverticulosis without diverticulitis. Hepatic steatosis.
[2018-11-21] MEDS ORDERED: HYDROmorphone 1 MG/ML 1 ML SYRINGE IVP STA (07:49)
[2018-11-21 07:53] LABS: Appearance,Urine Clear (Clear); Bilirubin,Urine Negative (Negative); Blood,Urine Negative (Negative); Color,Urine Yellow; Glucose,Urine (UA) Negative (Negative); Ketones,Urine 1+ (Negative); Leukocyte Esterase,Urine Negative (Negative); Nitrite,Urine Negative (Negative); Protein,Urine Trace (Negative); Urobilinogen,Urine <2.0 mg/dL (<2.0)
[2018-11-21 08:42] LABS: Specific Gravity,Urine >1.050 (1.001-1.035)
[2018-11-21] MEDS ORDERED: NALOXONE 0.4 MG/ML 1 ML VIAL IV PRN (09:17)
[2018-11-21 10:40] LABS: ALT 47 U/L (21-72); AST 35 U/L (17-59); Albumin 3.4 g/dL (3.5-5.0); Alkaline Phosphatase 32 U/L (38-126); Amylase <30 U/L (30-110); Anion Gap 7 mmol/L; Blood Urea Nitrogen 19 mg/dL (9-20); Carbon Dioxide 21 mmol/L (22-30); Chloride 113 mmol/L (98-107); Glucose 106 mg/dL (74-99); Lipase 36 U/L (23-300); Potassium 3.7 mmol/L (3.5-5.1); Sodium 141 mmol/L (137-145); Total Bilirubin 0.5 mg/dL (0.2-1.3); Total Protein 5.5 g/dL (6.3-8.2)
[2018-11-21] MEDS: HYDROmorphone 0.5 MG/0.5 ML SYRINGE IVP PRN ×4 (10:46→21:28)
[2018-11-21] MEDS: SODIUM CHLORIDE 0.9% 1,000 ML IV SCH ×2 (10:47→18:33)
[2018-11-21] MEDS: metroNIDAZOLE-NS PMX 500 MG in SALINE 1 100ML.BAG IVPB SCH (16:48)
[2018-11-21] MEDS: ceFAZolin (PMX-bag) 1,000 MG in DEXTROSE/WATER 1 50ML.BAG IVPB SCH (18:11)
--- NOTE | 2018-11-21 19:35 | HP ---
HISTORY AND PHYSICAL CHIEF COMPLAINT: One-day history of left lower quadrant abdominal pain and history of diverticulitis. SUMMARY OF HISTORY OF PRESENT ILLNESS: This gentleman developed a sudden onset of left lower mid lower abdominal pain with fever chills and nausea and vomiting. He has had chills and fever. Came to the emergency room where he was admitted. REVIEW OF SYSTEMS: He has had no headaches, neurologic problems, chest pain, shortness of breath, cough, hemoptysis, nausea, vomiting, hematemesis, melena, hematochezia, jaundice, renal failure, and diabetes, etc. He does have a history of hypertension and arthritis. He is not allergic to any medication. He is on finasteride, doxazosin, rosuvastatin, atenolol, omeprazole, vitamin D3, Vicodin, aspirin, and Claritin. The remainder of his history is unremarkable. He has had several episodes of diverticulitis. PHYSICAL EXAMINATION: Blood pressure 124/80, pulse of 80, respirations 16 and he is afebrile. In general, he appeared to be well developed, well nourished, in no acute distress. Skin color is normal. Skin is warm, dry. Lymph nodes are not enlarged. Head, ears, eyes, nose, mouth and throat were normal. Neck veins are not distended. Thyroid is not enlarged. Chest is clear. Cardiac exam is normal. The abdomen is tender in the lower half and toward the left lower quadrant with some guarding. Bowel sounds present. Extremities normal. Neurological is intact. IMPRESSION: 1. Acute diverticulitis. 2. History of hypertension. 3. History of hyperlipidemia. 4. Benign prostatic hypertrophy. PLAN: 1. Bed rest. 2. IV fluids. 3. IV antibiotics. 4. Surgical consult. MMODL / IJN: [id number] /
[2018-11-22] MEDS: ceFAZolin (PMX-bag) 1,000 MG in DEXTROSE/WATER 1 50ML.BAG IVPB SCH ×5 (00:19→23:10)
[2018-11-22] MEDS: metroNIDAZOLE-NS PMX 500 MG in SALINE 1 100ML.BAG IVPB SCH ×3 (00:20→16:00)
[2018-11-22] MEDS: SODIUM CHLORIDE 0.9% 1,000 ML IV SCH ×4 (00:29→20:32)
[2018-11-22] MEDS: HYDROmorphone 0.5 MG/0.5 ML SYRINGE IVP PRN ×6 (00:32→20:26)
[2018-11-22] MEDS: PANTOPRAZOLE 40 MG/10 ML VIAL IV SCH (08:01)
--- NOTE | 2018-11-22 08:44 | P.GSCN ---
History of Present Illness Consult date: 11/22/18 Reason for Consult: Abdominal pain History of present illness: 68-year-old male known to our service. Patient was hospitalized in March. Patient at that time had complaints of left lower quadrant abdominal pain. CAT scan at that time showed subtle thickening suspected in the sigmoid colon. Patient reports a history of diverticulitis in the past. His CAT scan does demonstrate pandiverticulosis. Last colonoscopy 3 years ago. This time the patient states he developed bad of vomiting episodes with significant diarrhea. He was having mid abdominal pain that radiated to the lower abdomen. No rectal bleeding. Diarrhea and vomiting have improved. Still having some pain apparently. CAT scan this admission shows again diverticulosis however no significant inflammatory changes identified. Patient's white blood cell count is normal. He is afebrile without tachycardia. 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 Mother Family Medical History: Dementia Additional Family Medical History / Comment(s): Mother is 85 yrs old. Medications and Allergies Home Medications Medication Instructions Recorded Confirmed Type Aspirin EC [Ecotrin] 325 mg PO HS 03/26/18 11/21/18 History Atenolol [Tenormin] 50 mg PO HS 03/26/18 11/21/18 History Cholecalciferol [Vitamin D3] 5,000 unit PO HS 03/26/18 11/21/18 History Doxazosin [Cardura] 4 mg PO HS 03/26/18 11/21/18 History Finasteride [Proscar] 5 mg PO HS 03/26/18 11/21/18 History HYDROcodone/APAP 10-325MG [[place] 1 tab PO BID PRN 03/26/18 11/21/18 History 10-325] Loratadine [Claritin] 10 mg PO HS 03/26/18 11/21/18 History Omeprazole 20 mg PO HS 03/26/18 11/21/18 History Rosuvastatin Calcium [Crestor] 40 mg PO HS 03/26/18 11/21/18 History Allergies Allergy/AdvReac Type Severity Reaction Status Date / Time No Known Allergies Allergy Verified 11/21/18 07:44 Surgical - Exam Vital Signs Temp Pulse Resp BP Pulse Ox 97.8 F 53 L 16 139/87 98 11/21/18 06:23 11/21/18 06:23 11/21/18 06:23 11/21/18 06:23 11/21/18 06:23 Physical exam: General: Well-developed, well-nourished HEENT: Normocephalic, sclerae nonicteric Abdomen: Mild mid abdominal tenderness, nondistended Extremities: No edema Neuro: Alert and oriented Results - Labs 11/21/18 06:45 11/21/18 10:00 Abnormal Lab Results - Last 24 Hours (Table) 11/21/18 11/21/18 Range/Units 07:40 10:00 Chloride 113 H (98-107) mmol/L Carbon Dioxide 21 L (22-30) mmol/L Creatinine 0.59 L (0.66-1.25) mg/dL Glucose 106 H (74-99) mg/dL Calcium 8.0 L (8.4-10.2) mg/dL Alkaline Phosphatase 32 L (38-126) U/L Total Protein 5.5 L (6.3-8.2) g/dL Albumin 3.4 L (3.5-5.0) g/dL Amylase <30 L (30-110) U/L Ur Specific [place] >1.050 H (1.001-1.035) Diabetes panel 11/21/18 Range/Units 10:00 Sodium 141 (137-145) mmol/L Potassium 3.7 (3.5-5.1) mmol/L Chloride 113 H (98-107) mmol/L Carbon Dioxide 21 L (22-30) mmol/L BUN 19 (9-20) mg/dL Creatinine 0.59 L (0.66-1.25) mg/dL Glucose 106 H (74-99) mg/dL Calcium 8.0 L (8.4-10.2) mg/dL AST 35 (17-59) U/L ALT 47 (21-72) U/L Alkaline Phosphatase 32 L (38-126) U/L Total Protein 5.5 L (6.3-8.2) g/dL Albumin 3.4 L (3.5-5.0) g/dL Calcium panel 11/21/18 Range/Units 10:00 Calcium 8.0 L (8.4-10.2) mg/dL Albumin 3.4 L (3.5-5.0) g/dL Pituitary panel 11/21/18 Range/Units 10:00 Sodium 141 (137-145) mmol/L Potassium 3.7 (3.5-5.1) mmol/L Chloride 113 H (98-107) mmol/L Carbon Dioxide 21 L (22-30) mmol/L BUN 19 (9-20) mg/dL Creatinine 0.59 L (0.66-1.25) mg/dL Glucose 106 H (74-99) mg/dL Calcium 8.0 L (8.4-10.2) mg/dL Adrenal panel 11/21/18 Range/Units 10:00 Sodium 141 (137-145) mmol/L Potassium 3.7 (3.5-5.1) mmol/L Chloride 113 H (98-107) mmol/L Carbon Dioxide 21 L (22-30) mmol/L BUN 19 (9-20) mg/dL Creatinine 0.59 L (0.66-1.25) mg/dL Glucose 106 H (74-99) mg/dL Calcium 8.0 L (8.4-10.2) mg/dL Total Bilirubin 0.5 (0.2-1.3) mg/dL AST 35 (17-59) U/L ALT 47 (21-72) U/L Alkaline Phosphatase 32 L (38-126) U/L Total Protein 5.5 L (6.3-8.2) g/dL Albumin 3.4 L (3.5-5.0) g/dL Assessment and Plan (1) Abdominal pain Narrative/Plan: Patient admitted for symptoms of abdominal pain. Both the patient's CAT scan and his history do not support the diagnosis of diverticulitis at this time. Suspect possible gastroenteritis. Slowly advance diet. Minimize analgesics. Home when tolerating diet and pain improved. Current Visit: Yes Status: Acute Code(s): R10.9 - UNSPECIFIED ABDOMINAL PAIN [place] Code(s): 68671240
--- NOTE | 2018-11-22 15:20 | PN ---
PROGRESS NOTE DATE OF SERVICE: 11/22/2018 CHIEF COMPLAINT: Abdominal pain. HISTORY OF PRESENT ILLNESS: This gentleman is still having pain. It is more generalized and it moves about. It is not restricted to the lower abdomen or left lower quadrant. Temperature is down. This is looking less and less like diverticulitis. He has a brother who had an unusual GI issue that resulted in lesions in his stomach penetrating through and some attaching to the colon. They are going to look into exactly what this was. PHYSICAL EXAMINATION: His abdomen is slightly distended and he has generalized mild tenderness. Bowel sounds are present. He is afebrile. IMPRESSION: 1. Abdominal pain, etiology unknown. 2. Hypertension. PLAN: GI consult. MMODL / IJN: [id number] /
[2018-11-22] MEDS ORDERED: ONDANSETRON 4 MG/2 ML VIAL IVP PRN (18:18)
[2018-11-23] MEDS: metroNIDAZOLE-NS PMX 500 MG in SALINE 1 100ML.BAG IVPB SCH ×3 (00:26→16:38)
[2018-11-23] MEDS: ceFAZolin (PMX-bag) 1,000 MG in DEXTROSE/WATER 1 50ML.BAG IVPB SCH ×3 (05:56→17:42)
[2018-11-23] MEDS: HYDROmorphone 0.5 MG/0.5 ML SYRINGE IVP PRN ×4 (06:01→19:48)
--- NOTE | 2018-11-23 08:38 | P.PN ---
Subjective Progress Note Date: 11/23/18 Principal diagnosis: Abdominal pain Patient states his pain is slightly increased today. States it is still moving from the midabdomen to bilateral lower quadrants. Tolerating clears. Asking for pain medications fairly regularly. He is afebrile. Morning labs pending. Small amount of flatus. No significant bowel function. Objective - Vital Signs Vital signs: Vital Signs Temp 97.6 F 11/23/18 05:23 Pulse 55 L 11/23/18 05:23 Resp 16 11/23/18 05:23 BP 142/76 11/23/18 05:23 Pulse Ox 99 11/23/18 05:23 Intake & Output 11/22/18 11/23/18 11/23/18 18:59 06:59 18:59 Intake Total 1000 Balance 1000 Intake: Intake, IV Titration 1000 Amount Sodium [place] 0.9% 1, 800 000 ml @ 125 mls/hr IV . Q8H CHARISMA Rx#:[id number] ceFAZolin 1,000 mg In 100 Dextrose/Water 1 50ml.bag @ 100 mls/hr IVPB Q6HR CHARISMA Rx#:[id number] metroNIDAZOLE-NS PMX 500 100 mg In Saline 1 100ml.bag @ 100 mls/hr IVPB Q8HR CHARISMA Rx#:[id number] Other: # Voids 3 - Exam Abdomen: Soft, nondistended, mild mid abdominal and lower abdominal tenderness, no rebound or guarding - Labs CBC & Chem 7: 11/21/18 06:45 11/21/18 10:00 Labs: Microbiology - Last 24 Hours (Table) 11/21/18 06:45 Blood Culture - Preliminary Blood No Growth after 24 hours Assessment and Plan (1) Abdominal pain Narrative/Plan: Patient still having abdominal pain. Continue advancing diet as tolerated. Ambulate. GI consult pending. Check morning labs. We'll check influenza swab. Current Visit: Yes Status: Acute Code(s): R10.9 - UNSPECIFIED ABDOMINAL PAIN SNOMED Code(s): 23739273
[2018-11-23 09:43] LABS: Basophils % (A) 0 %; Eosinophils # (A) 0.2 k/uL (0-0.7); Eosinophils % (A) 3 %; HGB 15.6 gm/dL (13.0-17.5); Lymphocytes # (A) 1.8 k/uL (1.0-4.8); Lymphocytes % (A) 25 %; MCHC 34.6 g/dL (31.0-37.0); MCV 92.4 fL (80.0-100.0); Mean Platelet Volume 6.9; Monocytes # (A) 0.5 k/uL (0-1.0); Monocytes % (A) 7 %; Neutrophils # (A) 4.5 k/uL (1.3-7.7); Neutrophils % (A) 63 %; Platelet Count 157 k/uL (150-450); RBC 4.87 m/uL (4.30-5.90); RDW 11.8 % (11.5-15.5); WBC 7.2 k/uL (3.8-10.6)
[2018-11-23] MEDS: PANTOPRAZOLE 40 MG/10 ML VIAL IV SCH (10:04)
[2018-11-23] MEDS: SODIUM CHLORIDE 0.9% 1,000 ML IV SCH ×2 (11:10→17:43)
--- NOTE | 2018-11-23 15:15 | PN ---
PROGRESS NOTE DATE OF SERVICE: 11/23/2018. CHIEF COMPLAINT: Abdominal pain and possible diverticulitis. HISTORY OF PRESENT ILLNESS: This gentleman continues to be about the same. He is having mild and transient fleeting abdominal pain. Temperature has been down. The picture is less and less compatible with diverticulitis. He is being evaluated by GI and is still being followed by Surgery. PHYSICAL EXAM: He is afebrile. Chest is clear. Cardiac exam is normal. The abdomen is soft, nontender. IMPRESSION: 1. Abdominal pain, etiology unknown. 2. Possible diverticulitis. 3. Hypertension. PLAN: Continue with conservative management and await recommendations from Gastroenterology. MMODL / IJN: [id number] /
[2018-11-23] MEDS: DICYCLOMINE 20 MG TAB PO SCH ×2 (17:42→23:58)
--- NOTE | 2018-11-23 21:00 | P.CONS ---
History of Present Illness - Reason for Consult Consult date: 11/23/18 Abdominal pain Requesting physician: Nathanael Johns - Chief Complaint Abdominal pain - History of Present Illness Pleasant 68-year-old male with a medical history significant for GERD, lipid anemia, hypertension, osteoarthritis, BPH and prior episodes of diverticulitis presents with complaints of abdominal pain. The patient reports abdominal pain in the periumbilical region described as sharp and severe in nature. He has associated cramping pain as well. The patient reports that prior to the episode he had multiple episodes of loose stool 5 days ago. Since that time he has not had any bowel movements. He denies any blood per rectum or black tarry stools. He also reports nausea and vomiting which have improved. The patient has had prior episodes of diverticulitis with the last hospitalization and 03/2018. However the patient and his report that since that time he has had 3 episodes where he has not been hospitalized. Laboratory evaluation significant for WBC 7.2, hemoglobin 15.6, platelet count 157,000, total bilirubin 0.5, alkaline phosphatase 32, AST 33, ALT 47. Computed tomography scan of the abdomen significant for hepatic steatosis with no acute intra-abdominal process noted and diverticulosis of the sigmoid seen. Amylase and lipase also negative on admission. Patient believes last colonoscopy was approximately 3 years ago a nd essentially normal. Review of Systems REVIEW OF SYSTEMS: CONSTITUTIONAL: Denies any fevers, chills, weight change or fatigue. CARDIOVASCULAR: Denies any chest pain, palpitations high or low blood pressures RESPIRATORY: Denies any shortness of breath, hemoptysis or cough. GENITOURINARY: No dysuria or hematuria. MUSCULOSKELETAL: No weakness reported. SKIN: Denies any new rashes or lesions, jaundice or pallor. PSYCHIATRIC: Denies any depression or anxiety. NEUROLOGY: Denies headache, denies any new focal deficits. EARS/NOSE/THROAT: No recent hearing change, congestion, nasal discharge or sore throat. EYES: No pain in eyes, discharge or change in vision. GASTROINTESTINAL: As per HPI. Past Medical History Past Medical History: Cancer, GERD/Reflux, Hyperlipidemia, Hypertension, Osteo arthritis (OA), Prostate Disorder Additional Past Medical History / Comment(s): Recurrent diverticulitis, arthritis multiple joints, BPH, sinus problems, melanoma removed from L arm History of Any Multi-Drug Resistant Organisms: None Reported Past Surgical History: Heart Catheterization Additional Past Surgical History / Comment(s): Melanoma removed from L arm, colonoscopies Past Anesthesia/Blood Transfusion Reactions: No Reported Reaction Smoking Status: Former smoker - Past Family History Father Family Medical History: Cancer Additional Family Medical History / Comment(s): Father had colon cancer. Mother Family Medical History: Dementia Additional Family Medical History / Comment(s): Mother is 85 yrs old. Medications and Allergies Home Medications Medication Instructions Recorded Confirmed Type Aspirin EC [Ecotrin] 325 mg PO HS 03/26/18 11/21/18 History Atenolol [Tenormin] 50 mg PO HS 03/26/18 11/21/18 History Cholecalciferol [Vitamin D3] 5,000 unit PO HS 03/26/18 11/21/18 History Doxazosin [Cardura] 4 mg PO HS 03/26/18 11/21/18 History Finasteride [Proscar] 5 mg PO HS 03/26/18 11/21/18 History HYDROcodone/APAP 10-325MG [[place] 1 tab PO BID PRN 03/26/18 11/21/18 History 10-325] Loratadine [Claritin] 10 mg PO HS 03/26/18 11/21/18 History Omeprazole 20 mg PO HS 03/26/18 11/21/18 History Rosuvastatin Calcium [Crestor] 40 mg PO HS 03/26/18 11/21/18 History Allergies Allergy/AdvReac Type Severity Reaction Status Date / Time No Known Allergies Allergy Verified 11/21/18 07:44 Physical Exam Vitals: Vital Signs Temp Pulse Resp BP BP Pulse Ox 11/23/18 05:23 97.6 F 55 L 16 142/76 99 11/22/18 21:40 98.4 F 60 16 113/67 95 11/22/18 14:58 98.4 F 56 L 18 117/70 96 Intake and Output 11/22/18 11/23/18 11/23/18 22:59 06:59 14:59 Other: # Voids 1 3 On physical examination, patient appears comfortable in no apparent distress. HEAD: Normocephalic, atraumatic. EYES: No scleral icterus. No conjunctival injection. MOUTH: No lesions, tongue midline. NECK: Trachea midline, no gross abnormalities. CHEST: Clear to auscultation with no wheezing or rhonchi appreciated. HEART: Regular rate and rhythm. ABDOMEN: Soft, obese. Bowel sounds are positive. No organomegaly. No guarding or rigidity. EXTREMITIES: No pedal edema. SKIN: No rashes, no jaundice. NEUROLOGIC: Alert and oriented x3. No focal deficits. Results CBC & Chem 7: 11/23/18 09:24 11/21/18 10:00 Labs: Microbiology - Last 24 Hours (Table) 11/21/18 06:45 Blood Culture - Preliminary Blood No Growth after [address] scan - abdomen: report reviewed (Computed tomography scan of the abdomen sign ificant for hepatic steatosis with no acute intra-abdominal process noted and diverticulosis of the sigmoid seen.) Assessment and Plan (1) Intractable abdominal pain Narrative/Plan: Patient with prior episodes of uncomplicated diverticulitis presenting back with severe intractable abdominal pain. Computed tomography scan of the abdomen did show sigmoid diverticulosis without any acute inflammation. This may be a subclinical episode of diverticulitis, versus functional bowel disorder, versus a viral or bacterial gastroenteritis or other etiology. Current Visit: Yes Status: Acute Code(s): R10.9 - UNSPECIFIED ABDOMINAL PAIN SNOMED Code(s): 55589548 (2) Diverticulosis Current Visit: Yes Status: Acute Code(s): K57.90 - DVRTCLOS OF INTEST, PART UNSP, W/O PERF OR ABSCESS W/O BLEED SNOMED Code(s): 884670662 Plan: Supportive care We'll advance diet to low fiber low residual Will add Bentyl 20 mg 4 times a day Continue to monitor symptoms Will order x-ray abdomen in the a.m. Continue other medical management Thank you for allowing us to participate in the care of the patient we will continue to follow
[2018-11-23] MEDS: FINASTERIDE 5 MG TAB PO SCH (21:26)
[2018-11-23] MEDS: ASPIRIN 325 MG TAB PO SCH (21:26)
[2018-11-23] MEDS: ATENOLOL 50 MG TAB PO SCH (21:26)
[2018-11-23] MEDS: ATORVASTATIN 80 MG TAB PO SCH (21:26)
[2018-11-23] MEDS: DOXAZOSIN 4 MG TAB PO SCH (21:26)
[2018-11-23] MEDS: LORATADINE 10 MG TAB PO SCH (21:26)
[2018-11-23] MEDS: CHOLECALCIFEROL 1,000 UNIT TAB PO SCH (21:27)
[2018-11-24] MEDS: ceFAZolin (PMX-bag) 1,000 MG in DEXTROSE/WATER 1 50ML.BAG IVPB SCH ×5 (00:06→23:18)
[2018-11-24] MEDS: metroNIDAZOLE-NS PMX 500 MG in SALINE 1 100ML.BAG IVPB SCH ×3 (00:46→17:30)
[2018-11-24] MEDS: SODIUM CHLORIDE 0.9% 1,000 ML IV SCH ×4 (00:47→23:21)
[2018-11-24] MEDS: DICYCLOMINE 20 MG TAB PO SCH ×4 (08:00→23:18)
[2018-11-24] MEDS: PANTOPRAZOLE 40 MG/10 ML VIAL IV SCH (08:00)
--- NOTE | 2018-11-24 11:53 | XR ---
EXAMINATION TYPE: XR abdomen 2V DATE OF EXAM: 11/24/2018 CLINICAL DATA: 68 year-old male abdominal pain, [facility] COMPARISON: 03/26/2018 FINDINGS: Lung bases are clear. No evidence for free intraperitoneal air. No dilated small bowel or air-fluid levels. Scattered areas seen throughout the colon. No significant stool burden. No suspicious calcifications identified. IMPRESSION: No evidence for free air or bowel obstruction.
--- NOTE | 2018-11-24 11:55 | P.PN ---
<Yolanda Haskins Sae - Last Filed: 11/24/18 11:57> Subjective Progress Note Date: 11/24/18 CHIEF COMPLAINT: Abdominal pain HISTORY OF PRESENT ILLNESS: Patient examined at the bedside. He continues to complain of pain near umbilicus and bilateral lower quadrants. Reports mild nausea this morning. No emesis. Reports small nonbloody loose stool this m orning. Patient tolerating PO intake and ate majority of breakfast tray this morning. Afebrile. white count WNL yesterday. No repeat labs this morning. Abdominal x-ray this morning is negative for dilated small bowel or air-fluid levels. No significant stool burden. No evidence for free air or bowel obstruction. PHYSICAL EXAM: VITAL SIGNS: Reviewed. GENERAL: Well-developed in no acute distress. HEENT: No sclera icterus. Extraocular movements grossly intact. Moist buccal mucosa. Head is atraumatic, normocephalic. ABDOMEN: Soft. Nondistended. Mild tenderness. NEUROLOGIC: Alert and oriented. Cranial nerves II through XII grossly intact. ASSESSMENT: 1. Abdominal pain PLAN: 1. Continue current diet 2. GI on consult. Input appreciated. Bentyl added per GI. Nurse practitioner note has been reviewed by physician. Signing provider agrees with the documented findings, assessment, and plan of care. Objective - Vital Signs Vital signs: Vital Signs Temp 97.8 F 11/24/18 05:15 Pulse 54 L 11/24/18 05:49 Resp 20 11/24/18 05:15 BP 118/77 11/24/18 05:15 Pulse Ox 97 11/24/18 05:15 Intake & Output 11/23/18 11/24/18 11/24/18 18:59 06:59 18:59 Intake Total 1000 300 Balance 1000 300 Intake: Intake, IV Titration 1000 Amount Sodium Chloride 0.9% 1, 800 000 ml @ 125 mls/hr IV . Q8H CHARIS[facility] Rx#:[id number] ceFAZolin 1,000 mg In 100 Dextrose/Water 1 50ml.bag @ 100 mls/hr IVPB Q6HR [facility] Rx#:[id number] metroNIDAZOLE-NS PMX 500 100 mg In Saline 1 100ml.bag @ 100 mls/hr IVPB Q8HR [facility]ISMA Rx#:[id number] Oral 300 Other: # Voids 2 # Bowel Movements 0 - Labs CBC & Chem 7: 11/23/18 09:24 11/21/18 10:00 Labs: Microbiology - Last 24 Hours (Table) 11/21/18 06:45 Blood Culture - Preliminary Blood No Growth after 72 hours <Dewey Walden - Last Filed: 11/24/18 17:03> Subjective As above. Patient says his pain is improved. Appetite is improving as well. He ate solid food for lunch. GI evaluation and recommendations noted. Continue diet as tolerated. Stable for discharge from my standpoint. Follow-up with GI and myself postdischarge. Objective - Vital Signs Vital signs: Vital Signs Temp 97.2 F L 11/24/18 13:06 Pulse 56 L 11/24/18 13:06 Resp 16 11/24/18 13:06 BP 135/83 11/24/18 13:06 Pulse Ox 96 11/24/18 13:06 Intake & Output 11/23/18 11/24/18 11/24/18 18:59 06:59 18:59 Intake Total 2462 613 0018 Balance 4306 254 2066 Weight 99.79 kg Intake: Intake, IV Titration 1000 1000 Amount Sodium Chloride 0.9% 1, 800 800 000 ml @ 125 mls/hr IV . Q8H [facility]IS[facility] Rx#:[id number] ceFAZolin 1,000 mg In 100 100 Dextrose/Water 1 50ml.bag @ 100 mls/hr IVPB Q6HR [facility] Rx#:[id number] metroNIDAZOLE-NS PMX 500 100 100 mg In Saline 1 100ml.bag @ 100 mls/hr IVPB Q8HR [facility]ISMA Rx#:[id number] Oral 300 480 Other: # Voids 2 # Bowel Movements 0 - Labs CBC & Chem 7: 11/23/18 09:24 11/21/18 10:00 Labs: Microbiology - Last 24 Hours (Table) 11/21/18 06:45 Blood Culture - Preliminary Blood No Growth after 72 hours Assessment and Plan (1) Abdominal pain Current Visit: Yes Status: Acute Code(s): R10.9 - UNSPECIFIED ABDOMINAL PAIN SNOMED Code(s): 18763594
--- NOTE | 2018-11-24 14:28 | P.PN ---
Subjective Progress Note Date: 11/24/18 Principal diagnosis: Abdominal pain, diverticulosis Patient seen lying in bed. He reports tolerating his advance diet yesterday. She does report some improvement and abdominal pain. Does report one loose bowel movement. Objective - Vital Signs Vital signs: Vital Signs Temp 97.8 F 11/24/18 05:15 Pulse 54 L 11/24/18 05:49 Resp 20 11/24/18 05:15 BP 118/77 11/24/18 05:15 Pulse Ox 97 11/24/18 05:15 Intake & Output 11/23/18 11/24/18 11/24/18 18:59 06:59 18:59 Intake Total 1000 300 Balance 1000 300 Intake: Intake, IV Titration 1000 Amount Sodium Chloride 0.9% 1, 800 000 ml @ 125 mls/hr IV . Q8H CHARISMA Rx#:[id number] ceFAZolin 1,000 mg In 100 Dextrose/Water 1 50ml.bag @ 100 mls/hr IVPB Q6HR [facility]IS[facility] Rx#:[id number] metroNIDAZOLE-NS PMX 500 100 mg In Saline 1 100ml.bag @ 100 mls/hr IVPB Q8HR [facility]ISMA Rx#:[id number] Oral 300 Other: # Voids 2 # Bowel Movements 0 - Exam On physical examination, patient appears comfortable in no apparent distress. HEAD: Normocephalic, atraumatic. EYES: No scleral icterus. No conjunctival injection. MOUTH: No lesions, tongue midline. NECK: Trachea midline, no gross abnormalities. CHEST: Clear to auscultation with no wheezing or rhonchi appreciated. HEART: S1-S2 appreciated. ABDOMEN: Soft, obese. Bowel sounds are positive. No organomegaly. No guarding or rigidity. EXTREMITIES: No pedal edema. SKIN: No rashes, no jaundice. NEUROLOGIC: Alert and oriented x3. No focal deficits. - Labs CBC & Chem 7: 11/23/18 09:24 11/21/18 10:00 Labs: Microbiology - Last 24 Hours (Table) 11/21/18 06:45 Blood Culture - Preliminary Blood No Growth after 72 hours Assessment and Plan (1) Intractable abdominal pain Narrative/Plan: Patient with prior episodes of uncomplicated diverticulitis presenting back with severe intractable abdominal pain. Computed tomography scan of the abdomen did show sigmoid diverticulosis without any acute inflammation. This may be a subclinical episode of diverticulitis, versus functional bowel disorder, versus a viral or bacterial gastroenteritis or other etiology. X-ray of the abdomen today was negative for significant stool burden or acute abdominal process. Current Visit: Yes Status: Acute Code(s): R10.9 - UNSPECIFIED ABDOMINAL PAIN SNOMED Code(s): 28032179 (2) Diverticulosis Current Visit: Yes Status: Acute Code(s): K57.90 - DVRTCLOS OF INTEST, PART UNSP, W/O PERF OR ABSCESS W/O BLEED SNOMED Code(s): 615387992 Plan: Supportive care We'll advance diet to low fiber low residual Continue Bentyl 20 mg 4 times a day, can change to as needed in the outpatient setting Continue to monitor symptoms X-ray abdomen without any acute intra-abdominal findings or significant stool burden Continue other medical management Okay for discharge from GI standpoint Thank you for allowing us to participate in the care of the patient we will continue to follow
[2018-11-24 14:39] VITALS: BMI 29.8
--- NOTE | 2018-11-24 18:35 | PN ---
PROGRESS NOTE CHIEF COMPLAINT: Abdominal pain. HISTORY OF PRESENT ILLNESS: This gentleman is about the same, but he states his pain is a little bit better. It is not localized in the left lower quadrant now. PHYSICAL EXAM: He is afebrile. Chest is clear. Cardiac exam is normal. Abdomen is soft and he has some generalized mild tenderness. There are no masses. IMPRESSION: 1. Abdominal pain, etiology unknown. 2. Diverticulitis. PLAN: Continue to follow and await further recommendations from Gastroenterology. MMODL / IJN: [id number] /
[2018-11-24] MEDS: HYDROmorphone 0.5 MG/0.5 ML SYRINGE IVP PRN (21:35)
[2018-11-24] MEDS: CHOLECALCIFEROL 1,000 UNIT TAB PO SCH (21:38)
[2018-11-24] MEDS: ASPIRIN 325 MG TAB PO SCH (21:39)
[2018-11-24] MEDS: ATORVASTATIN 80 MG TAB PO SCH (21:39)
[2018-11-24] MEDS: LORATADINE 10 MG TAB PO SCH (21:40)
[2018-11-24] MEDS: ATENOLOL 50 MG TAB PO SCH (21:41)
[2018-11-24] MEDS: DOXAZOSIN 4 MG TAB PO SCH (22:32)
[2018-11-24] MEDS: FINASTERIDE 5 MG TAB PO SCH (22:32)
[2018-11-25] MEDS: metroNIDAZOLE-NS PMX 500 MG in SALINE 1 100ML.BAG IVPB SCH ×2 (01:03→09:21)
[2018-11-25] MEDS: ceFAZolin (PMX-bag) 1,000 MG in DEXTROSE/WATER 1 50ML.BAG IVPB SCH (06:04)
[2018-11-25 07:33] VITALS: BP 143/55; PULSE 55; RESP 18; TEMP 97.6
[2018-11-25] MEDS: DICYCLOMINE 20 MG TAB PO SCH (07:55)
[2018-11-25] MEDS: PANTOPRAZOLE 40 MG/10 ML VIAL IV SCH (07:56)
[2018-11-25] MEDS: SODIUM CHLORIDE 0.9% 1,000 ML IV SCH (09:47)
--- NOTE | 2018-11-25 10:43 | P.PN ---
<Yolanda Haskins - Last Filed: 11/25/18 10:42> Subjective Progress Note Date: 11/25/18 CHIEF COMPLAINT: Abdominal pain HISTORY OF PRESENT ILLNESS: Patient examined at the bedside. Patient denies abdominal pain. Denies nausea or vomiting. Tolerating diet. Reports bowel movement. PHYSICAL EXAM: VITAL SIGNS: Reviewed. GENERAL: Well-developed in no acute distress. HEENT: No sclera icterus. Extraocular movements grossly intact. Moist buccal mucosa. Head is atraumatic, normocephalic. ABDOMEN: Soft. Nondistended. Nontender NEUROLOGIC: Alert and oriented. Cranial nerves II through XII grossly intact. ASSESSMENT: 1. Abdominal pain PLAN: Patient is stable for discharge from a surgical standpoint. He may follow up with Dr. Walden outpatient. Nurse practitioner note has been reviewed by physician. Signing provider agrees with the documented findings, assessment, and plan of care. Objective - Vital Signs Vital signs: Vital Signs Temp 97.6 F 11/25/18 07:30 Pulse 55 L 11/25/18 07:30 Resp 18 11/25/18 08:00 BP 143/55 11/25/18 07:30 Pulse Ox 95 11/25/18 07:30 Intake & Output 11/24/18 11/25/18 11/25/18 18:59 06:59 18:59 Intake Total 1480 1180 Balance 1480 1180 Weight 99.79 kg Intake: Intake, IV Titration 1000 Amount Sodium Chloride 0.9% 1, 800 000 ml @ 125 mls/hr IV . Q8H [facility]IS[facility] Rx#:[id number] ceFAZolin 1,000 mg In 100 Dextrose/Water 1 50ml.bag @ 100 mls/hr IVPB Q6HR [facility]IS[facility] Rx#:[id number] metroNIDAZOLE-NS PMX 500 100 mg In Saline 1 100ml.bag @ 100 mls/hr IVPB Q8HR [facility]ISMA Rx#:[id number] Oral 480 1180 Other: # Voids 1 # Bowel Movements 0 - Labs CBC & Chem 7: 11/23/18 09:24 11/21/18 10:00 Labs: Microbiology - Last 24 Hours (Table) 11/21/18 06:45 Blood Culture - Preliminary Blood No Growth after 96 hours <Dewey Walden - Last Filed: 11/25/18 17:59> Subjective As above. Patient was discharge prior to my rounding of this patient. Objective - Vital Signs Vital signs: Vital Signs Temp 97.6 F 11/25/18 07:30 Pulse 55 L 11/25/18 07:30 Resp 18 11/25/18 08:00 BP 143/55 11/25/18 07:30 Pulse Ox 95 11/25/18 07:30 Intake & Output 11/24/18 11/25/18 11/25/18 18:59 06:59 18:59 Intake Total 1480 1180 Balance 1480 1180 Weight 99.79 kg Intake: Intake, IV Titration 1000 Amount Sodium Chloride 0.9% 1, 800 000 ml @ 125 mls/hr IV . Q8H [facility]IS[facility] Rx#:[id number] ceFAZolin 1,000 mg In 100 Dextrose/Water 1 50ml.bag @ 100 mls/hr IVPB Q6HR [facility] Rx#:[id number] metroNIDAZOLE-NS PMX 500 100 mg In Saline 1 100ml.bag @ 100 mls/hr IVPB Q8HR [facility]ISMA Rx#:[id number] Oral 480 1180 Other: # Voids 1 # Bowel Movements 0 - Labs CBC & Chem 7: 11/23/18 09:24 11/21/18 10:00 Labs: Microbiology - Last 24 Hours (Table) 11/21/18 06:45 Blood Culture - Preliminary Blood No Growth after 96 hours Assessment and Plan (1) Abdominal pain Status: Acute Code(s): R10.9 - UNSPECIFIED ABDOMINAL PAIN SNOMED Code(s): 39015821
[2018-11-25] MEDS ORDERED: CEPHALEXIN 500 MG CAP PO SCH (13:00)
[2018-11-25] MEDS ORDERED: metroNIDAZOLE 500 MG TAB PO SCH (16:00)
--- NOTE | 2018-11-25 20:20 | DS ---
DISCHARGE SUMMARY CHIEF COMPLAINT: Abdominal pain. HISTORY OF PRESENT ILLNESS AND PHYSICAL EXAM: Details of this man's history and physical can be found in the initial workup. LABORATORY STUDIES: While he was in the hospital, he had laboratory studies, details of which can be found in the laboratory section of his chart. COURSE IN HOSPITAL: After admission, he was placed on bedrest, started on intravenous fluids and IV antibiotics for presumed recurrent diverticulitis. CT did not definitely concur with that diagnosis. His abdominal pain started to migrate and become less typical for diverticulitis pain. He was seen by surgery and Gastroenterology. His pain started to gradually improve and he did well. It was felt that he could be discharged to outpatient followup. He will go home on oral antibiotics and be followed up in several days. FINAL DIAGNOSES: 1. Diverticulitis. 2. Possible colitis. 3. Possible small bowel enteritis. 4. Hypertension. OPERATIONS: None. CONSULTATIONS: Surgery and gastroenterology. He is improved. MMHALL / DCN: [id number] /
[2018-11-26] MEDS ORDERED: PANTOPRAZOLE 40 MG TABLET PO SCH (07:30)
== END 2018-11-25 12:16 | disposition home or self-care (01) | DRG 392 ==
LOC: EC 06:14 → 3NMEDONC 09:17 → 4MS4W 17:31 → OBSVTOIN 11-23 13:14 → 3NMEDONC 11-24 14:05
PROVIDERS: ADMIT Family Medicine; ATTEND Family Medicine
DX: K57.32 Diverticulitis of large intestine without perforation or abscess without bleeding (principal); K52.9 Noninfective gastroenteritis and colitis, unspecified; E78.5 Hyperlipidemia, unspecified; I10 Essential (primary) hypertension; K21.9 Gastro-esophageal reflux disease without esophagitis; K76.0 Fatty (change of) liver, not elsewhere classified; N40.0 Benign prostatic hyperplasia without lower urinary tract symptoms; Z79.82 Long term (current) use of aspirin; Z79.899 Other long term (current) drug therapy; Z80.0 Family history of malignant neoplasm of digestive organs; Z85.820 Personal history of malignant melanoma of skin; Z87.891 Personal history of nicotine dependence; Z82.0 Family history of epilepsy and other diseases of the nervous system; M15.9 Polyosteoarthritis, unspecified
CPT/HCPCS: 36415; 74019; 74177; 80053; 81003; 82150; 83605; 83690; 85025; 87040; 87324; 87502; 96361; 96365; 96367; 96375; 96376; 99285

== ENCOUNTER 2019-01-28 09:37 | Day surgery (SDC) | payer MEDICARE ==
[2019-01-23 09:17] VITALS: BMI 28.5
[~2019-01-28 09:37] MED LIST: LACTATED RINGERS 1,000 ML IV SCH; LIDOCAINE 1% 20 ML VIAL (10MG/ML) FOR IV START INTRADERMA PRN
[2019-01-28 09:59] VITALS: TEMP 97.7
[2019-01-28] MEDS ORDERED: PROPOFOL 10 MG/ML 20 ML VIAL IV ONE (10:31)
--- NOTE | 2019-01-28 10:39 | P.GSHP ---
History of Present Illness H&P Date: 01/28/19 Chief Complaint: Abdominal pain, change in bowel habits Patient here today for upper and lower endoscopy. He has had intermittent pains lower abdomen and upper abdomen at times. No heartburn. No nausea or vomiting. History of previous diverticulitis attacks. Past Medical History Past Medical History: Cancer, GERD/Reflux, Hyperlipidemia, Hypertension, Osteoarthritis (OA), Prostate Disorder Additional Past Medical History / Comment(s): Recurrent diverticulitis, arthritis -knees bone on bone., BPH, sinus problems, melanoma removed from L arm History of Any Multi-Drug Resistant Organisms: None Reported Past Surgical History: Heart Catheterization Additional Past Surgical History / Comment(s): Melanoma (local), colonoscopies Past Anesthesia/Blood Transfusion Reactions: No Reported Reaction Past Psychological History: No Psychological Hx Reported Additional Psychological History / Comment(s): . Smoking Status: Former smoker Past Alcohol Use History: Rare Additional Past Alcohol Use History / Comment(s): Pt started smoking in 1969 and quit in 1984. Past Drug Use History: Marijuana Additional Drug Use History / Comment(s): Occasional marijuana use. - Past Family History Father Family Medical History: Cancer Additional Family Medical History / Comment(s): Father had colon cancer. Mother Family Medical History: Dementia Additional Family Medical History / Comment(s): . Medications and Allergies Home Medications Medication Instructions Recorded Confirmed Type Aspirin EC [Ecotrin] 325 mg PO HS 03/26/18 01/28/19 History Atenolol [Tenormin] 50 mg PO HS 03/26/18 01/28/19 History Cholecalciferol [Vitamin D3 (25 5,000 unit PO HS 03/26/18 01/28/19 History Mcg = 1000 Iu)] Doxazosin [Cardura] 4 mg PO HS 03/26/18 01/28/19 History Finasteride [Proscar] 5 mg PO HS 03/26/18 01/28/19 History HYDROcodone/APAP 10-325MG [[place] 1 tab PO BID PRN 03/26/18 01/28/19 History 10-325] Loratadine [Claritin] 10 mg PO HS 03/26/18 01/28/19 History Omeprazole 20 mg PO HS 03/26/18 01/28/19 History Rosuvastatin Calcium [Crestor] 40 mg PO HS 03/26/18 01/28/19 History Allergies Allergy/AdvReac Type Severity Reaction Status Date / Time No Known Allergies Allergy Verified 01/28/19 09:53 Surgical - Exam Vital Signs Temp Pulse Resp BP Pulse Ox 97.7 F 69 16 121/71 98 01/28/19 09:56 01/28/19 09:56 01/28/19 09:56 01/28/19 09:56 01/28/19 09:56 The patient denies any acute changes in vision or hearing, no dysphagia or spenser nophagia, no chest pain or shortness of breath, no dysuria or hematuria, no headache, no runny nose, no rectal bleeding or melena, no unexplained weight loss Assessment and Plan (1) Abdominal pain Narrative/Plan: Will proceed with upper and lower endoscopy at this time. Current Visit: No Status: Acute Code(s): R10.9 - UNSPECIFIED ABDOMINAL PAIN SNOMED Code(s): 62550263
--- NOTE | 2019-01-28 10:58 | P.PCN ---
Date of Procedure: 01/28/19 Procedure(s) Performed: PREOPERATIVE DIAGNOSIS: Abdominal pain, change in bowel habits POSTOPERATIVE DIAGNOSIS: Mild gastritis PROCEDURE: 1. EGD with biopsy 2. Colonoscopy ANESTHESIA: MAC SURGEON: Dewey Walden M.D. SPECIMENS: Antrum ENDOSCOPIC PROCEDURE: The patient was on the endoscopy table in the left decubitus position. The Olympus gastroscope was inserted into the oropharynx and passed under direct visualization to the region of the third portion of the duodenum. From that point the scope was slowly withdrawn inspecting all surfaces carefully. There were no neoplastic inflammatory or polypoid lesions throughout the duodenum. The pylorus was widely patent. The stomach was carefully inspected. There was mild gastritis present. A biopsy of the antrum took place to rule out H. pylori. Retroflexion revealed a normal hiatus. The esophagus was then carefully examined. There were no neoplastic inflammatory or polypoid lesions throughout the visualized esophagus. The patient was kept on the endoscopy table in the left decubitus position. The Olympus colonoscope was inserted into the anus and passed under direct visualization to the base of the cecum. The appendiceal orifice was visualized. From that point the scope was slowly withdrawn inspecting all surfaces carefull y. There were no neoplastic inflammatory or polypoid lesions throughout the cecum, ascending, transverse, descending, sigmoid and rectum. There was moderate diverticulosis noted throughout the colon. Digital rectal examination was normal. The patient was taken to the recovery room in stable condition per anesthesia guidelines. RECOMMENDATIONS: Increase fiber. Await biopsy results. Resume diet.
[2019-01-28 11:30] VITALS: BP 125/85; PULSE 65; RESP 16
== END 2019-01-28 11:40 | disposition home or self-care (01) ==
LOC: ORWHC2ENDO 09:37
PROVIDERS: ATTEND Surgery
DX: K29.50 Unspecified chronic gastritis without bleeding (principal); K57.30 Diverticulosis of large intestine without perforation or abscess without bleeding; E78.5 Hyperlipidemia, unspecified; I10 Essential (primary) hypertension; K21.9 Gastro-esophageal reflux disease without esophagitis; M19.90 Unspecified osteoarthritis, unspecified site; N40.0 Benign prostatic hyperplasia without lower urinary tract symptoms; Z79.82 Long term (current) use of aspirin; Z79.899 Other long term (current) drug therapy; Z85.820 Personal history of malignant melanoma of skin; Z87.891 Personal history of nicotine dependence
CPT/HCPCS: 43239; 45378; 88305

== ENCOUNTER 2019-04-26 18:51 | Observation (INO) | payer MEDICARE ==
[2019-04-26] MEDS ORDERED: SODIUM CHLORIDE 0.9% 1,000 ML IV STA (19:22)
[2019-04-26] MEDS ORDERED: ONDANSETRON 4 MG/2 ML VIAL IVP STA (19:22)
[2019-04-26 20:01] LABS: Basophils # (A) 0.1 k/uL (0-0.2); Basophils % (A) 1 %; Eosinophils # (A) 0.1 k/uL (0-0.7); Eosinophils % (A) 1 %; HGB 16.6 gm/dL (13.0-17.5); Lymphocytes # (A) 2.1 k/uL (1.0-4.8); Lymphocytes % (A) 20 %; MCH 32.1 pg (25.0-35.0); MCHC 35.3 g/dL (31.0-37.0); MCV 90.9 fL (80.0-100.0); Mean Platelet Volume 7.2; Monocytes # (A) 0.7 k/uL (0-1.0); Monocytes % (A) 6 %; Neutrophils # (A) 7.4 k/uL (1.3-7.7); Neutrophils % (A) 71 %; Platelet Count 176 k/uL (150-450); RBC 5.17 m/uL (4.30-5.90); RDW 14.6 % (11.5-15.5); WBC 10.5 k/uL (3.8-10.6)
[2019-04-26 20:07] LABS: ALT 22 U/L (21-72); AST 21 U/L (17-59); African American GFR (CKD) >90 (>60 ml/min/1.73 sqM); Albumin 4.5 g/dL (3.5-5.0); Alkaline Phosphatase 43 U/L (38-126); Amylase 50 U/L (30-110); Anion Gap 12 mmol/L; Blood Urea Nitrogen 20 mg/dL (9-20); Calcium 9.6 mg/dL (8.4-10.2); Carbon Dioxide 21 mmol/L (22-30); Chloride 104 mmol/L (98-107); Glucose 119 mg/dL (74-99); Potassium 3.6 mmol/L (3.5-5.1); Sodium 137 mmol/L (137-145); Total Protein 7.2 g/dL (6.3-8.2)
[2019-04-26 20:12] LABS: Appearance,Urine Clear (Clear); Bilirubin,Urine Negative (Negative); Blood,Urine Negative (Negative); Color,Urine Yellow; Glucose,Urine (UA) Negative (Negative); Ketones,Urine Negative (Negative); Leukocyte Esterase,Urine Negative (Negative); Nitrite,Urine Negative (Negative); PH, Urine 5.5 (5.0-8.0); Protein,Urine Trace (Negative)
--- NOTE | 2019-04-26 20:14 | ED ---
Abdominal Pain HPI - General Chief Complaint: Abdominal Pain Stated Complaint: Abd pain Time Seen by Provider: 04/26/19 19:12 Source: patient Mode of arrival: ambulatory Limitations: no limitations - History of Present Illness Initial Comments: Patient is 68-year-old male presenting to emergency department with the chief complaint of abdominal pain, nausea vomiting diarrhea. Patient reports the symptoms started proximally 4 days ago with intermittent, diffuse abdominal pain. Patient also reports nausea vomiting diarrhea over the same period. Lety ent reports the vomiting has since resolved but it's because he is not eating a lot. Patient reports prior to onset of the symptoms, he was eating food at [employer]. Patient reports the current abdominal pain is not related to food intake. Patient reports the abdominal pain is rather a discomfort and denies any alleviating or aggravating factors. Patient denies taking any medication to alleviate the symptoms. Patient reports he recently had a colonoscopy and an upper GI scope performed that were suggestive of mild gastritis. Patient denies any night sweats fevers or chills. Patient denies any urinary problems. Patient denies hemoptysis, Hematochezia or melena. Patient denies prior abdom inal surgeries. Patient denies recent international travels. - Related Data Home Medications Medication Instructions Recorded Confirmed Aspirin EC [Ecotrin] 325 mg PO HS 03/26/18 01/28/19 Atenolol [Tenormin] 50 mg PO HS 03/26/18 01/28/19 Cholecalciferol [Vitamin D3 (25 5,000 unit PO HS 03/26/18 01/28/19 Mcg = 1000 Iu)] Doxazosin [Cardura] 4 mg PO HS 03/26/18 01/28/19 Finasteride [Proscar] 5 mg PO HS 03/26/18 01/28/19 HYDROcodone/APAP 10-325MG [[place] 1 tab PO BID PRN 03/26/18 01/28/19 10-325] Loratadine [Claritin] 10 mg PO HS 03/26/18 01/28/19 Omeprazole 20 mg PO HS 03/26/18 01/28/19 Rosuvastatin Calcium [Crestor] 40 mg PO HS 03/26/18 01/28/19 Allergies Allergy/AdvReac Type Severity Reaction Status Date / Time No Known Allergies Allergy Verified 01/28/19 09:53 Review of Systems ROS Statement: Those systems with pertinent positive or pertinent negative responses have been documented in the HPI. ROS Other: All systems not noted in ROS Statement are negative. Past Medical History Past Medical History: Cancer, GERD/Reflux, Hyperlipidemia, Hypertension, Osteoarthritis (OA), Prostate Disorder Additional Past Medical History / Comment(s): Recurrent diverticulitis, arthritis -knees bone on bone., BPH, sinus problems, melanoma removed from L arm History of Any Multi-Drug Resistant Organisms: None Reported Past Surgical History: Heart Catheterization Additional Past Surgical History / Comment(s): Melanoma (local), colonoscopies Past Anesthesia/Blood Transfusion Reactions: No Reported Reaction Past Psychological History: No Psychological Hx Reported Smoking Status: Former smoker Past Alcohol Use History: Rare Past Drug Use History: Marijuana - Past Family History Father Family Medical History: Cancer Additional Family Medical History / Comment(s): Father had colon cancer. Mother Family Medical History: Dementia Additional Family Medical History / Comment(s): . General Exam Limitations: no limitations General appearance: alert, in no apparent distress Head exam: Present: atraumatic, normocephalic, normal inspection Eye exam: Present: normal appearance, PERRL, EOMI Pupils: Present: normal accommodation ENT exam: Present: normal exam, normal oropharynx, mucous membranes dry, TM's normal bilaterally, normal external ear exam Neck exam: Present: normal inspection, full ROM Respiratory exam: Present: normal lung sounds bilaterally Cardiovascular Exam: Present: normal rhythm, bradycardia, normal heart sounds GI/Abdominal exam: Present: soft, tenderness (Diffuse Mild abdominal discomfort ), normal bowel sounds. Absent: distended, guarding, rebound, mass, hernia Extremities exam: Present: normal inspection, full ROM Back exam: Present: normal inspection, full ROM Neurological exam: Present: alert, oriented X3 Psychiatric exam: Present: normal affect, normal mood Skin exam: Present: warm, intact, normal color Course Vital Signs 04/26/19 04/26/19 04/27/19 19:01 20:45 00:36 Temperature 98.1 F 98 F Pulse Rate 51 L 52 L Respiratory 18 18 18 Rate Blood Pressure 128/80 167/91 122/75 O2 Sat by Pulse 97 98 Oximetry Medical Decision Making - Medical Decision Making Patient is a 68-year-old male presenting to emergency Department with a chief complaint of abdominal pain, nausea vomiting diarrhea. Patient reports initial symptoms started approximately 4 days ago. On initial evaluation patient reports diffuse abdominal discomfort with no alleviating or aggravating factors. Patient also reports nausea but no vomiting. Patient was given fluids and anti-medic medication. I reevaluation patient reports he developed left lower quadrant abdominal pain and rates it an 8. Patient was given additional antiemetic medication and does report mild improvement. Patient was given analg esia. Patient reports only mild improvement pain and the nausea has slightly resolved. CT of the abdomen and pelvis indicative of left lower quadrant diverticulosis but it could also represent mild/early diverticulitis. Patient will be admitted for further medical management. Strict return parameters were thoroughly discussed with patient was understanding and agreeable. Case discussed physician. Admitting physician is Dr. Wilson. CBC, CMP and UA are unremarkable. - Lab Data Result diagrams: 04/26/19 19:04/26/19 19:23 Lab Results 04/26/19 04/26/19 04/26/19 Range/Units 19:23 19:23 19:57 WBC 10.5 (3.8-10.6) k/uL RBC 5.17 (4.30-5.90) m/uL Hgb 16.6 (13.0-17.5) gm/dL Hct 47.0 (39.0-53.0) % MCV 90.9 (80.0-100.0) fL MCH 32.1 (25.0-35.0) pg MCHC 35.3 (31.0-37.0) g/dL RDW 14.6 (11.5-15.5) % Plt Count 176 (150-450) k/uL Neutrophils % 71 % Lymphocytes % 20 % Monocytes % 6 % Eosinophils % 1 % Basophils % 1 % Neutrophils # 7.4 (1.3-7.7) k/uL Lymphocytes # 2.1 (1.0-4.8) k/uL Monocytes # 0.7 (0-1.0) k/uL Eosinophils # 0.1 (0-0.7) k/uL Basophils # 0.1 (0-0.2) k/uL Sodium 137 (137-145) mmol/L Potassium 3.6 (3.5-5.1) mmol/L Chloride 104 (98-107) mmol/L Carbon Dioxide 21 L (22-30) mmol/L Anion Gap 12 mmol/L BUN 20 (9-20) mg/dL Creatinine 0.79 (0.66-1.25) mg/dL Est GFR (CKD-EPI)AfAm >90 (>60 ml/min/1.73 sqM) Est GFR (CKD-EPI)NonAf >90 (>60 ml/min/1.73 sqM) Glucose 119 H (74-99) mg/dL Calcium 9.6 (8.4-10.2) mg/dL Total Bilirubin 1.0 (0.2-1.3) mg/dL AST 21 (17-59) U/L ALT 22 (21-72) U/L Alkaline Phosphatase 43 (38-126) U/L Total Protein 7.2 (6.3-8.2) g/dL Albumin 4.5 (3.5-5.0) g/dL Amylase 50 (30-110) U/L Lipase 72 (23-300) U/L Urine Color Yellow Urine Appearance Clear (Clear) Urine pH 5.5 (5.0-8.0) Ur Specific Michael 1.030 (1.001-1.035) Urine Protein Trace H (Negative) Urine Glucose (UA) Negative (Negative) Urine Ketones Negative (Negative) Urine Blood Negative (Negative) Urine Nitrite Negative (Negative) Urine Bilirubin Negative (Negative) Urine Urobilinogen 3.0 (<2.0) mg/dL Ur Leukocyte Esterase Negative (Negative) Disposition Clinical Impression: Nausea vomiting and diarrhea, Abdominal pain, Diverticulosis Disposition: HOME SELF-CARE Condition: Stable Is patient prescribed a controlled substance at d/c from ED?: No Time of Disposition: 05:16
[2019-04-26] MEDS ORDERED: MORPHINE SULFATE 4 MG/ML SYRINGE IVP STA (20:40)
[2019-04-26] MEDS ORDERED: METOCLOPRAMIDE 5 MG/ML 2 ML VIAL IVP STA (21:35)
[2019-04-26] MEDS ORDERED: HYDROmorphone 1 MG/ML 1 ML SYRINGE IM STA (21:59)
--- NOTE | 2019-04-27 00:10 | CT ---
EXAM: CT Abdomen and Pelvis With Intravenous Contrast CLINICAL HISTORY: ITS.REASON CT Reason: Abdominal pain. Nausea vomiting diarrhea. TECHNIQUE: Axial computed tomography images of the abdomen and pelvis with intravenous contrast. CTDI is 13 mGy and DLP is 669 mGy-cm. This CT exam was performed using one or more of the following dose reduction techniques: automated exposure control, adjustment of the mA and/or kV according to patient size, and/or use of iterative reconstruction technique. COMPARISON: 11/21/18 CT abdomen FINDINGS: Lung bases: No mass. No consolidation. ABDOMEN: Liver: Unremarkable. Gallbladder and bile ducts: Unremarkable. Pancreas: Unremarkable. Spleen: Unremarkable. Adrenals: Unremarkable. Kidneys and ureters: No hydronephrosis. Left pelvocaliectasis. Stomach and bowel: No bowel obstruction. Mild sigmoid colon thickening. Colonic diverticulosis. PELVIS: Appendix: No evidence of appendicitis. Bladder: Unremarkable. Reproductive: Enlarged. ABDOMEN and PELVIS: Intraperitoneal space: Unremarkable. Bones/joints: No acute fractures. Soft tissues: Unremarkable. Vasculature: No abdominal aortic aneurysm. Lymph nodes: No enlarged lymph nodes. IMPRESSION: Sigmoid colon is mildly thickened with underlying diverticulosis. There is no significant inflammatory changes. However cannot rule out mild/early diverticulitis versus underdistention.
[2019-04-27] MEDS ORDERED: NALOXONE 0.4 MG/ML 1 ML VIAL IV PRN (01:05)
[2019-04-27] MEDS ORDERED: cefTRIAXone IN SWFI 1,000 MG/10 ML SYRINGE IVP STA (01:05)
[2019-04-27] MEDS ORDERED: metroNIDAZOLE-NS PMX 500 MG in SALINE 1 100ML.BAG IVPB STA (01:05)
[2019-04-27] MEDS ORDERED: MORPHINE SULFATE 4 MG/ML SYRINGE IV PRN (01:05)
[2019-04-27] MEDS: HYDROmorphone 0.5 MG/0.5 ML SYRINGE IVP PRN ×4 (02:49→20:24)
[2019-04-27 17:18] LABS: Basophils % (A) 1 %; Eosinophils # (A) 0.2 k/uL (0-0.7); Eosinophils % (A) 2 %; HCT 45.6 % (39.0-53.0); HGB 15.7 gm/dL (13.0-17.5); Lymphocytes # (A) 2.5 k/uL (1.0-4.8); Lymphocytes % (A) 32 %; MCH 31.3 pg (25.0-35.0); MCHC 34.3 g/dL (31.0-37.0); MCV 91.3 fL (80.0-100.0); Mean Platelet Volume 6.8; Monocytes # (A) 0.6 k/uL (0-1.0); Monocytes % (A) 7 %; Neutrophils # (A) 4.5 k/uL (1.3-7.7); Neutrophils % (A) 56 %; Platelet Count 167 k/uL (150-450); RDW 11.7 % (11.5-15.5); WBC 7.9 k/uL (3.8-10.6)
[2019-04-27 17:27] LABS: ALT 24 U/L (21-72); AST 20 U/L (17-59); African American GFR (CKD) >90 (>60 ml/min/1.73 sqM); Albumin 4.1 g/dL (3.5-5.0); Alkaline Phosphatase 37 U/L (38-126); Anion Gap 9 mmol/L; Blood Urea Nitrogen 15 mg/dL (9-20); Calcium 9.2 mg/dL (8.4-10.2); Carbon Dioxide 26 mmol/L (22-30); Chloride 104 mmol/L (98-107); Glucose 98 mg/dL (74-99); Potassium 4.3 mmol/L (3.5-5.1); Sodium 139 mmol/L (137-145); Total Bilirubin 0.8 mg/dL (0.2-1.3); Total Protein 6.5 g/dL (6.3-8.2)
--- NOTE | 2019-04-27 19:38 | HP ---
HISTORY AND PHYSICAL CHIEF COMPLAINT: Acute abdominal pain. HISTORY OF PRESENT ILLNESS: This is another admission for this 68-year-old white male who has had several episodes of diarrhea, diverticulitis in the past. He developed some abdominal pain 4 or 5 days before coming in around the mid abdomen. On the day of admission, he started to have mid abdominal discomfort with chills and nausea and vomiting. He had no diarrhea or melena. He has had no hematemesis. In the emergency room, his white count was essentially normal and he was not particularly tender in the left lower quadrant and more over the mid lower abdomen. He has since felt better since he has been in. He has had no jaundice, melena, hematochezia, hematemesis, etc. REVIEW OF SYSTEMS: He has had no neurologic problems, difficulty with vision or hearing, cough, shortness of breath, chest pain, palpitations, orthopnea, PND, etc. He has had no urinary complaints. Past medical history, family history, personal and social histories were all otherwise unremarkable and noncontributory. He is not allergic to any medication. He is on doxazosin 2 mg at night, finasteride 5 mg once a day, rosuvastatin 40 once a day, atenolol 50 once a day, omeprazole 20 mg once a day, vitamin D3, and Claritin 10 mg once a day. Past medical history, family history and personal and social histories are all otherwise unremarkable except for having had a melanoma removed in the left forearm in 2014 without sequelae. 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 Drinks beer occasionally. The family history reveals a history of hypertension, hyperlipidemia, coronary artery disease. PHYSICAL EXAM: Blood pressure 122/82, pulse 64, respirations 16 and he is afebrile. In general he appeared to be well developed, well nourished, in no acute distress. Skin color is normal. Skin is warm, dry. Lymph nodes not enlarged. Head, ears, eyes, nose, mouth, and throat were normal. Neck veins not distended. Thyroid is not enlarged. Chest is clear to auscultation and percussion. Cardiac exam is normal with sinus rhythm. The abdomen is slightly protuberant, soft and not particularly tender. He is minimally tender in the mid lower abdomen and there are no masses. Bowel sounds present. There is no significant change in the abdominal pain from the right or to the left lower quadrant. Extremities are normal. IMPRESSION: 1. Acute lower abdominal pain, etiology unknown. 2. ? diverticulitis. 3. ? other etiology. PLAN: 1. Bed rest. 2. IV fluids. 3. Follow CBC and abdominal pain with findings. 4. General surgery consult. MMODL / DCN: [id number] /
[2019-04-27] MEDS: ASPIRIN 325 MG TAB PO SCH (20:21)
[2019-04-27] MEDS: ATENOLOL 50 MG TAB PO SCH (20:21)
[2019-04-27] MEDS: PANTOPRAZOLE 40 MG TABLET PO SCH (20:21)
[2019-04-27] MEDS: DOXAZOSIN 2 MG TAB PO SCH (20:24)
[2019-04-28] MEDS ORDERED: ONDANSETRON 4 MG/2 ML VIAL IVP PRN (10:54)
--- NOTE | 2019-04-28 14:07 | P.GSCN ---
<Yolanda Haskins - Last Filed: 04/28/19 13:27> History of Present Illness Consult date: 04/28/19 Reason for Consult: abdominal pain Requesting physician: Nathanael Johns History of present illness: CHIEF COMPLAINT: Abdominal pain HISTORY OF PRESENT ILLNESS: 68 -year-old male who presented to emergency room with a chief complaint of abdominal pain. Patient states he went to [facility] to be with his on Saturday and then he began throwing up. He states he began having abdominal discomfort and loose stools. He states his abdominal pain is almost completely resolved. He reports having formed stools yesterday and today. No further episodes of loose stools. No further episodes of emesis since coming to the hospital. Patient was nothing by mouth yesterday and has not had his breakfast tray yet this morning. Patient underwent EGD and colonoscopy with Dr. Campbell in January 2019 revealing mild gastritis. Colonoscopy unremarkable. PAST MEDICAL HISTORY: See list. PAST SURGICAL HISTORY: See list. SOCIAL HISTORY: No illicit drug use. REVIEW OF SYSTEMS: CONSTITUTIONAL: Denies fever or chills. HEENT: Denies blurred vision, vision changes, or eye pain. Denies hemoptysis CARDIOVASCULAR: Denies chest pain or pressure. RESPIRATORY: No shortness of breath. GASTROINTESTINAL: Refer to HPI for pertinent findings HEMATOLOGIC: Denies bleeding disorders. GENITOURINARY: Denies any blood in urine. SKIN: Denies pruitis. Denies rash. PHYSICAL EXAM: VITAL SIGNS: Reviewed. GENERAL: Well-developed in no acute distress. HEENT: No sclera icterus. Extraocular movements grossly intact. Moist buccal mucosa. Head is atraumatic, normocephalic. ABDOMEN: Soft. Nondistended. Mild tenderness with palpation to bilateral lower quadrants. Positive bowel sounds. NEUROLOGIC: Alert and oriented. Cranial nerves II through XII grossly intact. LABORATORY DATA: WBC 10.5. Repeat 7.9. IMAGING: CT abdomen and pelvis: Sigmoid colon is mildly thickened with underlying diverticulosis. No significant inflammatory changes. However cannot rule out mild/early diverticulitis versus underdistention. ASSESSMENT: 1. Abdominal pain, nausea, vomiting, diarrhea, CT revealing possible mild/early diverticulitis 2. History of diverticulitis PLAN: Patient reports his symptoms began after eating fast food at [facility] with his . His diarrhea, nausea, and vomiting have resolved at the time of my examination this morning. He clinically does not appear to have acute d iverticulitis. His WBC has been normal and he has received 1 dose of antibiotics in the ER. Nausea, vomiting, diarrhea may be secondary to gastroenteritis. Will start full liquid diet and advanced as tolerated. If patient tolerates, he may be discharged home today from a surgical standpoint and follow up outpatient with Dr. Walden Nurse practitioner note has been reviewed by physician. Signing provider agrees with the documented findings, assessment, and plan of care. Past Medical History Past Medical History: Cancer, GERD/Reflux, Hyperlipidemia, Hypertension, Osteoarthritis (OA), Prostate Disorder Additional Past Medical History / Comment(s): Recurrent diverticulitis, arthritis -knees bone on bone., BPH, sinus problems, melanoma removed from L arm History of Any Multi-Drug Resistant Organisms: None Reported Past Surgical History: Heart Catheterization Additional Past Surgical History / Comment(s): Melanoma (local), colonoscopies Past Anesthesia/Blood Transfusion Reactions: No Reported Reaction Past Psychological History: No Psychological Hx Reported Smoking Status: Former smoker Past Alcohol Use History: Rare Past Drug Use History: Marijuana - Past Family History Father Family Medical History: Cancer Additional Family Medical History / Comment(s): Father had colon cancer. Mother Family Medical History: Dementia Additional Family Medical History / Comment(s): . Medications and Allergies Home Medications Medication Instructions Recorded Confirmed Type Aspirin EC [Ecotrin] 325 mg PO HS 03/26/18 04/27/19 History Atenolol [Tenormin] 50 mg PO HS 03/26/18 04/27/19 History Cholecalciferol [Vitamin D3 (25 5,000 unit PO HS 03/26/18 04/27/19 History Mcg = 1000 Iu)] Doxazosin [Cardura] 4 mg PO HS 03/26/18 04/27/19 History Finasteride [Proscar] 5 mg PO HS 03/26/18 04/27/19 History HYDROcodone/APAP 10-325MG [[place] 1 tab PO BID PRN 03/26/18 04/27/19 History 10-325] Loratadine [Claritin] 10 mg PO HS 03/26/18 04/27/19 History Omeprazole 20 mg PO HS 03/26/18 04/27/19 History Rosuvastatin Calcium [Crestor] 40 mg PO HS 03/26/18 04/27/19 History Allergies Allergy/AdvReac Type Severity Reaction Status Date / Time No Known Allergies Allergy Verified 04/27/19 07:44 Surgical - Exam Vital Signs Temp Pulse Resp BP Pulse Ox 98.1 F 51 L 18 128/80 97 04/26/19 19:01 04/26/19 19:01 04/26/19 19:01 04/26/19 19:01 04/26/19 19:01 Results - Labs 04/27/19 16:57 04/27/19 16:57 Abnormal Lab Results - Last 24 Hours (Table) 04/27/19 Range/Units 16:57 Alkaline Phosphatase 37 L (38-126) U/L Microbiology - Last 24 Hours (Table) 04/27/19 01:38 Blood Culture - Preliminary Blood No Growth after 24 hours Diabetes panel 04/27/19 Range/Units 16:57 Sodium 139 (137-145) mmol/L Potassium 4.3 (3.5-5.1) mmol/L Chloride 104 (98-107) mmol/L Carbon Dioxide 26 (22-30) mmol/L BUN 15 (9-20) mg/dL Creatinine 0.74 (0.66-1.25) mg/dL Glucose 98 (74-99) mg/dL Calcium 9.2 (8.4-10.2) mg/dL AST 20 (17-59) U/L ALT 24 (21-72) U/L Alkaline Phosphatase 37 L (38-126) U/L Total Protein 6.5 (6.3-8.2) g/dL Albumin 4.1 (3.5-5.0) g/dL Calcium panel 04/27/19 Range/Units 16:57 Calcium 9.2 (8.4-10.2) mg/dL Albumin 4.1 (3.5-5.0) g/dL Pituitary panel 04/27/19 Range/Units 16:57 Sodium 139 (137-145) mmol/L Potassium 4.3 (3.5-5.1) mmol/L Chloride 104 (98-107) mmol/L Carbon Dioxide 26 (22-30) mmol/L BUN 15 (9-20) mg/dL Creatinine 0.74 (0.66-1.25) mg/dL Glucose 98 (74-99) mg/dL Calcium 9.2 (8.4-10.2) mg/dL Adrenal panel 04/27/19 Range/Units 16:57 Sodium 139 (137-145) mmol/L Potassium 4.3 (3.5-5.1) mmol/L Chloride 104 (98-107) mmol/L Carbon Dioxide 26 (22-30) mmol/L BUN 15 (9-20) mg/dL Creatinine 0.74 (0.66-1.25) mg/dL Glucose 98 (74-99) mg/dL Calcium 9.2 (8.4-10.2) mg/dL Total Bilirubin 0.8 (0.2-1.3) mg/dL AST 20 (17-59) U/L ALT 24 (21-72) U/L Alkaline Phosphatase 37 L (38-126) U/L Total Protein 6.5 (6.3-8.2) g/dL Albumin 4.1 (3.5-5.0) g/dL <Dewey Walden - Last Filed: 04/28/19 16:59> History of Present Illness History of present illness: As above. Patient had another episode of mid abdominal pain associated with nausea vomiting and diarrhea. CAT scan reviewed. No significant inflammatory changes. White blood cell count is normal. Continue advancing diet. Consider outpatient GI evaluation. Probable discharge in the morning. Surgical - Exam Vital Signs Temp Pulse Resp BP Pulse Ox 98.1 F 51 L 18 128/80 97 04/26/19 19:01 04/26/19 19:01 04/26/19 19:01 04/26/19 19:01 04/26/19 19:01 Results - Labs 04/27/19 16:57 04/27/19 16:57 Abnormal Lab Results - Last 24 Hours (Table) 04/27/19 Range/Units 16:57 Alkaline Phosphatase 37 L (38-126) U/L Microbiology - Last 24 Hours (Table) 04/27/19 01:38 Blood Culture - Preliminary Blood No Growth after 24 hours Diabetes panel 04/27/19 Range/Units 16:57 Sodium 139 (137-145) mmol/L Potassium 4.3 (3.5-5.1) mmol/L Chloride 104 (98-107) mmol/L Carbon Dioxide 26 (22-30) mmol/L BUN 15 (9-20) mg/dL Creatinine 0.74 (0.66-1.25) mg/dL Glucose 98 (74-99) mg/dL Calcium 9.2 (8.4-10.2) mg/dL AST 20 (17-59) U/L ALT 24 (21-72) U/L Alkaline Phosphatase 37 L (38-126) U/L Total Protein 6.5 (6.3-8.2) g/dL Albumin 4.1 (3.5-5.0) g/dL Calcium panel 04/27/19 Range/Units 16:57 Calcium 9.2 (8.4-10.2) mg/dL Albumin 4.1 (3.5-5.0) g/dL Pituitary panel 04/27/19 Range/Units 16:57 Sodium 139 (137-145) mmol/L Potassium 4.3 (3.5-5.1) mmol/L Chloride 104 (98-107) mmol/L Carbon Dioxide 26 (22-30) mmol/L BUN 15 (9-20) mg/dL Creatinine 0.74 (0.66-1.25) mg/dL Glucose 98 (74-99) mg/dL Calcium 9.2 (8.4-10.2) mg/dL Adrenal panel 04/27/19 Range/Units 16:57 Sodium 139 (137-145) mmol/L Potassium 4.3 (3.5-5.1) mmol/L Chloride 104 (98-107) mmol/L Carbon Dioxide 26 (22-30) mmol/L BUN 15 (9-20) mg/dL Creatinine 0.74 (0.66-1.25) mg/dL Glucose 98 (74-99) mg/dL Calcium 9.2 (8.4-10.2) mg/dL Total Bilirubin 0.8 (0.2-1.3) mg/dL AST 20 (17-59) U/L ALT 24 (21-72) U/L Alkaline Phosphatase 37 L (38-126) U/L Total Protein 6.5 (6.3-8.2) g/dL Albumin 4.1 (3.5-5.0) g/dL
--- NOTE | 2019-04-28 17:15 | PN ---
PROGRESS NOTE CHIEF COMPLAINT: Abdominal pain. HISTORY OF PRESENT ILLNESS: This gentleman is doing well. He is not having significant pain. He has had no fever, chills, etc. He is having normal bowel movements and white count is normal. He has not been seen by Surgery. PHYSICAL EXAMINATION: His abdomen is soft and nontender. There are no masses. Flanks are nontender. Vital signs are normal. IMPRESSION: Lower abdominal pain, etiology unknown. PLAN: Await evaluation by Surgery, but he could probably go home any time. MMODL / IJN: [id number] /
[2019-04-28] MEDS: ASPIRIN 325 MG TAB PO SCH (20:04)
[2019-04-28] MEDS: HYDROmorphone 0.5 MG/0.5 ML SYRINGE IVP PRN (20:04)
[2019-04-28] MEDS: DOXAZOSIN 2 MG TAB PO SCH (20:04)
[2019-04-28] MEDS: PANTOPRAZOLE 40 MG TABLET PO SCH (20:05)
[2019-04-28] MEDS: ATENOLOL 50 MG TAB PO SCH (20:05)
[2019-04-29 07:55] VITALS: RESP 16
--- NOTE | 2019-04-29 11:40 | P.PN ---
<HaskinsYolanda Sae - Last Filed: 04/29/19 11:37> Subjective Progress Note Date: 04/29/19 CHIEF COMPLAINT: Abdominal pain HISTORY OF PRESENT ILLNESS: Patient examined this morning at the bedside. He states he had diarrhea yesterday around lunchtime. His diet was advanced for dinner and he reports that his stools have been soft since that time. Denies nausea or vomiting. Ate breakfast without difficulty. Reports abdominal pain is significantly improved and only reports some minimal mid abdominal discomfort. PHYSICAL EXAM: VITAL SIGNS: Reviewed. GENERAL: Well-developed in no acute distress. HEENT: No sclera icterus. Extraocular movements grossly intact. Moist buccal mucosa. Head is atraumatic, normocephalic. ABDOMEN: Soft. Nondistended. Nontender. Positive bowel sounds. NEUROLOGIC: Alert and oriented. Cranial nerves II through XII grossly intact. ASSESSMENT: 1. Abdominal pain, nausea, vomiting, diarrhea, CT revealing possible mild/early diverticulitis 2. History of diverticulitis PLAN: Continue current diet Stable for discharge from a surgical standpoint Nurse practitioner note has been reviewed by physician. Signing provider agrees with the documented findings, assessment, and plan of care. Objective - Vital Signs Vital signs: Vital Signs Temp 98.4 F 04/29/19 07:24 Pulse 57 L 04/29/19 07:24 Resp 16 04/29/19 07:24 BP 126/74 04/29/19 07:24 Pulse Ox 98 04/29/19 07:24 Intake & Output 04/28/19 04/29/19 04/29/19 18:59 06:59 18:59 Intake Total 360 480 240 Balance 360 480 240 Intake: Oral 360 480 240 Other: Voiding Method Toilet Toilet # Voids 2 1 - Labs CBC & Chem 7: 04/27/19 16:57 04/27/19 16:57 Labs: Microbiology - Last 24 Hours (Table) 04/27/19 01:38 Blood Culture - Preliminary Blood No Growth after 48 hours 04/27/19 16:57 Blood Culture - Preliminary Blood No Growth after 24 hours <Dewey Walden - Last Filed: 04/29/19 17:47> Subjective As above. Patient doing well today. Pain is improved. Stable for discharge. Recommend outpatient GI evaluation. Objective - Vital Signs Vital signs: Vital Signs Temp 98.9 F 04/29/19 14:15 Pulse 54 L 04/29/19 14:15 Resp 16 04/29/19 14:15 BP 115/68 04/29/19 14:15 Pulse Ox 94 L 04/29/19 14:15 Intake & Output 04/28/19 04/29/19 04/29/19 18:59 06:59 18:59 Intake Total 360 480 420 Balance 360 480 420 Intake: Oral 360 480 420 Other: Voiding Method Toilet Toilet # Voids 2 1 3 - Labs CBC & Chem 7: 04/27/19 16:57 04/27/19 16:57 Labs: Microbiology - Last 24 Hours (Table) 04/27/19 01:38 Blood Culture - Preliminary Blood No Growth after 48 hours 04/27/19 16:57 Blood Culture - Preliminary Blood No Growth after 24 hours
[2019-04-29 14:42] VITALS: BP 115/68; PULSE 54; TEMP 98.9
--- NOTE | 2019-04-29 22:34 | DS ---
DISCHARGE SUMMARY CHIEF COMPLAINT: Abdominal pain. HISTORY OF PRESENT ILLNESS AND PHYSICAL EXAM: Details of this man's history and physical can be found in the initial workup. LABORATORY STUDIES: While he was in the hospital, he had laboratory studies, details of which can be found in the laboratory section of his chart. COURSE IN HOSPITAL: After admission, he was placed on bedrest, started on intravenous fluids and was seen by Surgery. It was felt that he may have had an episode of diverticulitis. However, CT was unremarkable and his pain subsided. His white count came down from 10,000 to normal. He was able to eat without any nausea, cramps, pain, vomiting, chills, etc. He is doing well. It was felt he could be discharged on the and be followed as an outpatient. He will go home on his usual activity and diet and medication. FINAL DIAGNOSES: 1. Diverticulitis. 2. Hypertension. OPERATIONS: None. CONSULTATIONS: Surgery. He is improved. MMLEIGH / DCN: [id number] /
== END 2019-04-29 17:01 | disposition home or self-care (01) ==
LOC: EC 18:51 → 4SSUR 04-27 01:05
PROVIDERS: ADMIT Family Medicine; ATTEND Family Medicine
DX: K57.30 Diverticulosis of large intestine without perforation or abscess without bleeding (principal); I10 Essential (primary) hypertension; K21.9 Gastro-esophageal reflux disease without esophagitis; E78.5 Hyperlipidemia, unspecified; N40.0 Benign prostatic hyperplasia without lower urinary tract symptoms; M17.0 Bilateral primary osteoarthritis of knee; Z79.82 Long term (current) use of aspirin; Z79.899 Other long term (current) drug therapy; Z85.820 Personal history of malignant melanoma of skin; Z87.891 Personal history of nicotine dependence; Z87.19 Personal history of other diseases of the digestive system; Z80.0 Family history of malignant neoplasm of digestive organs; Z81.8 Family history of other mental and behavioral disorders; Z82.49 Family history of ischemic heart disease and other diseases of the circulatory system; Z83.49 Family history of other endocrine, nutritional and metabolic diseases
CPT/HCPCS: 96376 ×2; 96375 ×3; 96361 ×2; 96365; 96372; 99285; 36415; 80053 ×2; 82150; 83605; 83690 ×2; 85025 ×2; 81003; 87040; 74177; G0378 ×3; J2270; J2765; J2405 ×2; J0696; J1170 ×3; Q9967

== ENCOUNTER → 2020-06-03 | Outpatient (CLI) | payer MEDICARE ==
[2020-06-03 08:34] LABS: HCT 44.1 % (39.0-53.0); HGB 14.8 gm/dL (13.0-17.5); MCH 32.5 pg (25.0-35.0); MCHC 33.6 g/dL (31.0-37.0); MCV 96.5 fL (80.0-100.0); Mean Platelet Volume 7.3; Platelet Count 159 k/uL (150-450); RBC 4.57 m/uL (4.30-5.90); RDW 11.8 % (11.5-15.5); WBC 6.2 k/uL (3.8-10.6)
[2020-06-03 08:40] LABS: Appearance,Urine Clear (Clear); Bilirubin,Urine Negative (Negative); Blood,Urine Negative (Negative); Color,Urine Yellow; Glucose,Urine (UA) Negative (Negative); Ketones,Urine Negative (Negative); Leukocyte Esterase,Urine Negative (Negative); Nitrite,Urine Negative (Negative); PH, Urine 5.5 (5.0-8.0); Protein,Urine Trace (Negative); Urobilinogen,Urine <2.0 mg/dL (<2.0)
[2020-06-03 08:43] LABS: ALT 19 U/L (4-49); AST 23 U/L (17-59); African American GFR (CKD) >90 (>60 ml/min/1.73 sqM); Albumin 3.9 g/dL (3.5-5.0); Alkaline Phosphatase 40 U/L (38-126); Anion Gap 7 mmol/L; Blood Urea Nitrogen 15 mg/dL (9-20); Calcium 8.7 mg/dL (8.4-10.2); Carbon Dioxide 27 mmol/L (22-30); Chloride 108 mmol/L (98-107); Glucose 113 mg/dL (74-99); Non-African American GFR(CKD) >90 (>60 ml/min/1.73 sqM); Potassium 4.3 mmol/L (3.5-5.1); Sodium 142 mmol/L (137-145); Total Bilirubin 0.4 mg/dL (0.2-1.3); Total Protein 6.3 g/dL (6.3-8.2)
[2020-06-03 08:44] LABS: Partial Thromboplastin Time 24.1 sec (22.0-30.0); Prothrombin Time 10.1 sec (9.0-12.0)
== END | disposition home or self-care (01) ==
LOC: LABPAT 07:22
PROVIDERS: ATTEND Orthopaedic Surgery Sports Medicine
DX: Z01.818 Encounter for other preprocedural examination (principal); Z01.812 Encounter for preprocedural laboratory examination; Z79.01 Long term (current) use of anticoagulants
CPT/HCPCS: 36415; 80053; 81003; 85027; 85610; 85730; 87070

== ENCOUNTER 2020-06-23 05:31 | Day surgery (SDC) | payer MEDICARE ==
[2020-06-20 11:59] VITALS: BMI 29.8
[~2020-06-23 05:31] MED LIST changes: +ACETAMINOPHEN TAB 500 MG TAB PO ONE; +GABAPENTIN 300 MG CAP PO ONE; -LACTATED RINGERS 1,000 ML IV SCH; -LIDOCAINE 1% 20 ML VIAL (10MG/ML) FOR IV START INTRADERMA PRN; +MELOXICAM 7.5 MG TAB PO ONE; +TRANEXAMIC ACID 1,000 MG in SODIUM CHLORIDE 0.9% 100 ML IVPB ONE
[2020-06-23] MEDS ORDERED: ONDANSETRON 4 MG/2 ML VIAL IVP ONE (05:45)
[2020-06-23] MEDS ORDERED: DEXAMETHASONE SOD PHOSPHATE 4 MG/ML 1 ML VIAL IV ONE (05:45)
[2020-06-23] MEDS ORDERED: MIDAZOLAM 2 MG/2 ML VIAL IV PRN (05:45)
[2020-06-23] MEDS: ONDANSETRON 4 MG/2 ML VIAL IVP ONE ×2 (06:30→12:20)
[2020-06-23] MEDS ORDERED: fentaNYL (PF) 50 MCG/ML 2 ML AMP IV ONE (06:42)
[2020-06-23] MEDS ORDERED: MIDAZOLAM 2 MG/2 ML VIAL IV ONE (06:42)
[2020-06-23] MEDS ORDERED: MIDAZOLAM 2 MG/2 ML VIAL ONE (06:58)
[2020-06-23] MEDS ORDERED: PROPOFOL 10 MG/ML 20 ML VIAL IV ONE (06:58)
[2020-06-23] MEDS ORDERED: LIDOCAINE 1% INJ 10MG/ML (20 ML MDV) ONE (06:58)
[2020-06-23] MEDS ORDERED: SODIUM CHLORIDE 0.9% 100 ML BAG ONE (06:58)
[2020-06-23] MEDS ORDERED: TRANEXAMIC ACID 1,000 MG/10 ML VIAL ONE (06:58)
[2020-06-23] MEDS ORDERED: fentaNYL (PF) 50 MCG/ML 2 ML AMP ONE (06:58)
[2020-06-23] MEDS: LACTATED RINGERS 1,000 ML IV SCH ×3 (07:02→20:31)
[2020-06-23] MEDS ORDERED: ceFAZolin 3,000 MG in SODIUM CHLORIDE 0.9% IRRIGATIO 3,000 ML IRRIGATION ONE (07:03)
[2020-06-23] MEDS ORDERED: ROPIVACAINE 0.2%-NS ON-Q PUMP 1,090 MG, EMPTY PAIN BALL 1 EACH MISCELLANE PRN (07:22)
--- NOTE | 2020-06-23 07:22 | P.ANPRN ---
Procedure Note - Anesthesia - Nerve Block Performed Left Adductor Canal Infusion Time Out Performed: Yes Date of Procedure: 06/23/20 Procedure Start Time: 06:41 Procedure Stop Time: 06:50 Location of Patient: PreOp Indication: Requested by Surgeon (mur) Specifically requested for management of pain by DrCapo: Raffi Metcalf Sedation Type: Sedate with meaningful contact maintained Preparation: Sterile Prep, Sterile Dressing Position: Supine Catheter: Indwelling Needle Types: Pajunk Needle Gauge: 20 Ultrasound used to visualize needle placement: Yes Ultrasound used to observe medication spread: Yes Injectate: 0.5% Ropivacaine (see comment for volume) (20 ml) Blood Aspirated: No Pain Paresthesia on Injection Noted: No Resistance on Injection: Normal Image Stored and Saved: Yes Events: Uneventful and Well Tolerated
[2020-06-23] MEDS: ROPIVACAINE 246.25 MG, EPINEPHrine 0.5 MG, KETOROLAC 30 MG, cloNIDine HCL/PF 80 MCG, WA... MISCELLANE ONE ×10 (07:28→08:18)
[2020-06-23] MEDS ORDERED: ACETAMINOPHEN TAB 325 MG TAB PO PRN (09:09)
[2020-06-23] MEDS ORDERED: TEMAZEPAM 15 MG CAP PO PRN (09:09)
[2020-06-23] MEDS ORDERED: HYDROmorphone 0.5 MG/0.5 ML SYRINGE IVP PRN ×2 (09:09)
[2020-06-23] MEDS ORDERED: traMADol 50 MG TAB PO PRN (09:09)
[2020-06-23] MEDS ORDERED: NALOXONE 0.4 MG/ML 1 ML VIAL IV PRN (09:09)
[2020-06-23] MEDS ORDERED: NA PHOS,M-B/NA PHOS,DI-BA 133 ML ENEMA RECTAL PRN (09:09)
[2020-06-23] MEDS ORDERED: hydrOXYzine pamoate 25 MG CAP PO PRN (09:09)
[2020-06-23] MEDS ORDERED: bisacodyL 10 MG SUPP RECTAL PRN (09:09)
[2020-06-23] MEDS ORDERED: MAGNESIUM HYDROXIDE 2,400 MG/10 ML CUP PO PRN (09:09)
[2020-06-23] MEDS ORDERED: ONDANSETRON 4 MG/2 ML VIAL IVP PRN (09:09)
[2020-06-23] MEDS ORDERED: HYDROcodone/APAP 10-325MG 1 EACH TAB PO PRN (09:12)
--- NOTE | 2020-06-23 09:38 | XR ---
EXAMINATION TYPE: XR knee limited LT DATE OF EXAM: 06/23/2020 CLINICAL HISTORY: Left knee pain and arthritis status post total knee replacement. TECHNIQUE: Portable AP and crosstable lateral views of the left knee are obtained immediately postop eratively. COMPARISON: None FINDINGS: [place] osseous structures are demineralized. Metallic hardware from total left knee arthrop lasty is seen and appears satisfactory in alignment and position. There is evidence of recent surger y with diffuse subcutaneous gas and soft tissue swelling noted. Posterior vascular calcification is p resent. IMPRESSION: METALLIC HARDWARE FROM TOTAL LEFT KNEE ARTHROPLASTY IS SATISFACTORY IN ALIGNMENT.
[2020-06-23] MEDS: HYDROmorphone 0.5 MG/0.5 ML SYRINGE IVP PRN ×4 (11:55→14:47)
--- NOTE | 2020-06-23 17:55 | OP ---
OPERATIVE REPORT DATE OF PROCEDURE: June 23, 2020. SURGEON: Dr. Raffi Metcalf. COMMERCIAL OR INSTITUTIONAL CLEANER: [place] NICHOLAS. PREOPERATIVE DIAGNOSIS: Left knee osteoarthrosis. POSTOPERATIVE DIAGNOSIS: Left knee osteoarthrosis. OPERATION PERFORMED: Left total knee arthroplasty. ANESTHESIA: Spinal with sedation. ESTIMATED BLOOD LOSS: 100 mL. TOURNIQUET TIME: 51 minutes at 250 mmHg. COMPLICATIONS: None apparent. DRAINS: None. DISPOSITION: Postanesthesia care unit. INDICATIONS: José is a very pleasant 70-year-old male with longstanding history of left knee pain. History and physical examination are consistent with advanced left knee osteoarthrosis. He has been through significant nonoperative management up to this point. Further treatment options were discussed and he decided to go forward with left total knee arthroplasty. The risks of procedure were discussed with him in detail. These risks include, but are not limited to risk of infection, nerve damage, bleeding, pain, and a small risk of deep vein thrombosis which could lead to fatal pulmonary embolism. There is also risk of loosening of the implant which could require revision operation. The patient understands these risks. All of his questions were answered to his satisfaction. Appropriate informed consent was obtained. DESCRIPTION OF THE PROCEDURE: The patient was identified in the preoperative holding area. Surgical sites marked by both the patient and myself. He is given 2 g of Ancef IV for prophylactic purposes. He was then transferred to the operative suite. He was placed supine on the operative table. Spinal anesthetic was then administered and dosed per the anesthesia without apparent complication. Examination under anesthesia was then performed. The patient was 2-3 degrees shy of full extension. He had 100 degrees of flexion. The medial collateral ligament, lateral collateral ligament and posterior cruciate ligaments were stable. Tourniquet was then placed high on the left upper thigh well-padded in preparation for surgery. The patient's left lower extremity was then prepped and draped in usual sterile fashion. Standard surgical pause undertaken to ensure that we were operating on the correct site and that appropriate preop antibiotics were given. All staff in the room in agreement and we proceeded. The outlines of the patella marked surgical pen. A planned 12 cm vertical incision was centered over the patella and was marked with surgical pen. Leg was exsanguinated with an Esmarch dressing. The knee was then flexed. The tourniquet was inflated to 250 mmHg. The total tourniquet time for the procedure was 51 minutes. Incision was then made with a 10 blade scalpel. Dissection carried down sharply overlying fascia. Great care was taken to minimize the skin flaps. The knee was then exposed using a standard medial parapatellar approach. A small cuff of quadriceps tendon was then left for suturing. He was in a bit of varus preoperatively. A standard medial release was then made. Superficial medial collateral ligament was dissected off the bone around the posterior aspect of the proximal tibia. The medial meniscus was then excised as well. The lateral meniscus was also released anteriorly. The leg was then externally rotated. The patella was everted. The knee was flexed the retractors then placed to protect the collateral ligaments. I then proceeded to remove the infrapatellar fat pad. This was excised sharply, tangentially with the fibers of the patellar tendon. I then proceeded to remove the peripheral osteophytes. This was done with a rongeur. I then proceed with the distal femoral resection. He did have near full extension. A planned 9 mm resection was then done. The femoral canal was then entered in midline of the femur approximately 10 mm anterior to the origin of the posterior cruciate ligament. The bartolo was then advanced down the center of the femur and placed intramedullary. Based on the preoperative radiographs, the angle between the anatomic and mechanical axis of the femur was approximately 4-5 degrees. The valgus angle of the distal femoral cutting guide was then set at 4 degrees for the left knee. The distal femoral cutting guide was then advanced over the intramedullary bartolo. This was seated firmly against the femur. I then as mentioned planned to take 9 mm off the distal femur. The cutting block was then secured onto the femur with pins. The jig was removed. The distal femoral cut was made through the slot of the block. The pins were then removed. The distal femoral cutting block was removed. The accuracy of the distal femoral cuts was checked with 2 flat bars. I then proceed with femoral sizing. The posterior referencing sizing guide was held firmly against the resected distal surface of the femur. The posterior condyles were resting on the posterior plane of the guide. The sizing stylus was then placed onto the anterior femur. The size was measured as a size 9. I then assessed for femoral rotation. Plan was for 3 degrees of external rotation. Three degrees of external rotation was placed onto the jig. These holes were then marked. I then confirmed the rotation by 3 separate methods. This done using epicondylar axis as well as Whitesides line and posterior referencing. It was deemed that the external rotation was proper. I went forward placing the femoral cutting block. This was placed over the previously placed pin holes. The Jm wing was then placed onto the anterior slots to ensure that we would not notch the anterior femur with the anterior femoral cut. I then proceed with the anterior femoral cut. This was flush with the anterior cortex of the femur. The posterior cuts were then made followed by the anterior chamfer cut, then the posterior chamfer cut. The cutting block was then removed. Throughout the resection, the collateral ligaments were protected with retractors. I then placed a trial size 9 femur. It fit very nice medial-lateral and fit flush with the distal end of the femur. The drill holes were then made. I then proceeded with the tibial cutter. I planned for cruciate retaining knee. The guide was placed and set for varus valgus and for slope. Height set for approximate 2 mm resection from the medial tibial plateau which was the lower side. I was happy with the alignment and the amount of resection. The cutting block was then pinned to the proximal tibia. The alignment bartolo was removed. The proximal tibia was resected with a reciprocating saw. Again this was done with retractors protecting the collateral ligaments as well as the posterior cruciate ligament. I then proceeded to evaluate the flexion extension gaps. A 10 mm block was then placed. The flexion-extension gaps were equal. I then proceeded with resection of posterior osteophytes. He had mild posterior osteophytes. This was done using a curved osteotome. This resected the posterior osteophytes and posterior capsule stripping was done off the posterior aspect of the femur at this time. The osteophytes were then removed. I then proceeded with resection of the patella. The thickness of the patella was measured using the caliper. The thickness was 24 mm. The thickness of the anticipated patellar dome was taken into account. Resection was then performed and confirmed to be equal in 4 quadrants using a caliper. Approximately 14 mm of bone remained after the resection. A 32 x 8.5 standard patellar trial was then placed. The holes were drilled. The trial was then placed. I then proceeded with sizing tibial plate. A size F tibial plate fit very nicely. I then placed the trial femur, the tibial tray and the patellar button. A 10 mm trial tibial insert was also placed. The components fit very nicely. He had full extension and flexion. The extension and flexion gaps were equal and stable to varus and valgus stress. The patella tracked appropriately. The tibial tray rotation was then marked with a Bovie. This was externally rotated properly. I then proceed with tibial preparation. I first drilled the femoral holes and removed femoral component. The tibial tray was then set for proper external rotation as well as mediolateral placement onto the tibia. It was then pinned into place. I then proceeded with punching the keel. I then decided to proceed with cementing of all of our components. The knee was thoroughly irrigated with sterile saline solution via pulse lavage. The lateral geniculate artery was identified and cauterized. All blood was removed from the bone of the tibia femur and patella with pulse lavage. I then proceed with cementing. Two packs of antibiotic bone cement prepared on the back table by the rn medical surgical. I then proceed with cementing the tibia first. The cement was impacted in the keel as well as deeply seated in the bone. A second coat of cement was then placed. The tibia was then impacted into place. Excess cement was removed with Phong's and jokers. I then proceed with cementing of the femoral component. The femoral component was also cemented using standard technique. Excess cement was removed. A 10 mm trial insert was then placed into the knee. It was brought in full extension with a constant axial load placed until the cement had hardened. The patellar component was then cemented. This held firmly with a compressive device until the cement had dried. When the cement had dried, the knee was taken out of extension. All excess cement was removed from around the prosthesis. I then trialed the knee with a 10 mm insert. Flexion extension gaps were appropriate. I then trialed a 12 mm insert. The flexion- extension gaps felt much better. The knee was stable with a 12 mm insert. Came into full extension. I decided to go forward with the 12 mm cross-linked cruciate-retaining tibial insert. Polyethylene was then placed onto the tray and locked into place. The knee was then reduced. The knee was again further irrigated with sterile saline solution with antibiotic added. The tourniquet was then deflated. Total tourniquet time for the procedure was 51 minutes at 250 mmHg. Final components were Karyna Persona size 9 cruciate-retaining femoral component, a size F tibial tray, a 12 mm medial congruent cruciate-retaining polyethylene insert and a 32 x 8.5 mm patella. I then proceeded with closure. Again, the knee was thoroughly irrigated. The quadriceps tendon and the medial retinaculum were reapproximated with #2 Ethibond suture. The extensor mechanism was then closed with a running #2 Quill suture. Subcutaneous tissues were closed with 2-0 Vicryl interrupted suture. The skin was closed with a running 3-0 Quill suture. Dermabond was applied to the incision. Sterile compressive dressing was then applied. All sponge and needle counts were deemed correct prior to closure. The patient tolerated the procedure without apparent complication. He was transferred recovery room in stable condition. MMODL / IJN: [id number] /
[2020-06-23] MEDS: oxyCODONE ER 10 MG TAB.ER.12H PO SCH (20:29)
[2020-06-23] MEDS: ASPIRIN 81 MG PO SCH (20:30)
[2020-06-23] MEDS ORDERED: SENNOSIDES-DOCUSATE SODIUM 1 EACH TAB PO SCH (21:00)
[2020-06-23] MEDS: HYDROcodone/APAP 10-325MG 1 EACH TAB PO PRN (21:57)
[2020-06-24] MEDS: diazePAM 5 MG TAB PO PRN ×2 (00:29→08:34)
[2020-06-24] MEDS: HYDROmorphone 0.5 MG/0.5 ML SYRINGE IVP PRN (05:18)
[2020-06-24] MEDS: LACTATED RINGERS 1,000 ML IV SCH ×2 (06:21)
[2020-06-24 07:22] VITALS: RESP 18
--- NOTE | 2020-06-24 07:29 | P.PN ---
Progress Note - Text Progress Note Date: 06/24/20 Postoperative day # 1 status post total knee arthroplasty, under spinal anesthesia, and adductor canal catheter placed for postoperative analgesia, currently at ropivacaine 0.2% 8 mL per hour and continuous infusion, complaining of pain in the posterior aspect of the knee,( not covered with the adductor canal block, patient using oral pain medication for breakthrough pain. Assessment and plan= Acute postoperative pain, adductor canal catheter for pain control, we'll continue the same management.
[2020-06-24 08:08] LABS: Basophils % (A) 0 %; Eosinophils # (A) 0.1 k/uL (0-0.7); Eosinophils % (A) 1 %; HCT 41.3 % (39.0-53.0); Lymphocytes % (A) 18 %; MCH 32.4 pg (25.0-35.0); MCHC 33.9 g/dL (31.0-37.0); MCV 95.6 fL (80.0-100.0); Mean Platelet Volume 7.1; Monocytes # (A) 0.8 k/uL (0-1.0); Monocytes % (A) 8 %; Neutrophils % (A) 72 %; Platelet Count 154 k/uL (150-450); RBC 4.32 m/uL (4.30-5.90); RDW 11.9 % (11.5-15.5); WBC 11.1 k/uL (3.8-10.6)
[2020-06-24] MEDS: oxyCODONE ER 10 MG TAB.ER.12H PO SCH (08:29)
[2020-06-24] MEDS: ASPIRIN 81 MG PO SCH (08:30)
[2020-06-24] MEDS: HYDROcodone/APAP 10-325MG 1 EACH TAB PO PRN (11:23)
[2020-06-24] MEDS ORDERED: DICYCLOMINE 10 MG CAP PO PRN (11:28)
[2020-06-24] MEDS ORDERED: MULTIVITAMINS, THERA 1 EACH TAB PO SCH (12:00)
[2020-06-24 12:22] VITALS: BP 120/78; PULSE 80; TEMP 99.2
--- NOTE | 2020-06-24 19:01 | P.DS ---
Providers Expected date of discharge: 06/24/20 Attending physician: Raffi Metcalf Consults: 06/23/20 09:09 Consult Physician Routine Consulting Provider: Nathanael Johns Consult Reason/Comments: post op medical management Do you want consulting provider notified?: Yes Primary care physician: Nathanael Johns - Discharge Diagnosis(es) (1) Status post total left knee replacement Patient was admitted to the OR on 06/23/2020 to undergo a left total knee arthroplasty. He had failed conservative measures as an outpatient and desired to proceed with elective surgery after given informed consent. He underwent the above procedure which he tolerated well without complication. Postoperative hospital course has remained without complication. On day of discharge he is afebrile, vital signs stable, labs within acceptable ranges, tolerating by mouth meds and diet, voiding without difficulty, positive flatus, denies abdominal pain or calf pain, pain is controlled on oral pain medication and has no new complaints. Wound is benign, neurovascular status is intact, calf is soft and nontender, abdomen soft and nontender. Review of systems is negative for numbness, tingling, fever, chills, chest pain, shortness of breath, nausea, vomiting, dizziness, headaches, slurred speech or other. Status: Acute Priority: Medium Procedures: Left TKA Patient Condition at Discharge: Good Plan - Discharge Summary Discharge Rx Participant: No New Discharge Prescriptions: New Aspirin [Adult Low Dose Aspirin EC] 81 mg PO BID #60 tablet. HYDROcodone/APAP 10-325MG [[place] 10-325] 1 tab PO Q4HR PRN #42 tab PRN Reason: Pain No Action Loratadine [Claritin] 10 mg PO HS Cholecalciferol [Vitamin D3 (25 Mcg = 1000 Iu)] 5,000 unit PO HS Aspirin EC [Ecotrin] 325 mg PO HS Rosuvastatin Calcium [Crestor] 40 mg PO HS Omeprazole 20 mg PO HS Finasteride [Proscar] 5 mg PO HS Doxazosin [Cardura] 4 mg PO HS atenoloL [Tenormin] 50 mg PO HS Dicyclomine [Bentyl] 10 mg PO TID PRN PRN Reason: abdominal pain HYDROcodone/APAP 10-325MG [[place] 10-325] 1 tab PO Q6HR PRN PRN Reason: Pain Discharge Medication List Aspirin EC [Ecotrin] 325 mg PO HS 03/26/18 [History] Cholecalciferol [Vitamin D3 (25 Mcg = 1000 Iu)] 5,000 unit PO HS 03/26/18 [History] Doxazosin [Cardura] 4 mg PO HS 03/26/18 [History] Finasteride [Proscar] 5 mg PO HS 03/26/18 [History] Loratadine [Claritin] 10 mg PO HS 03/26/18 [History] Omeprazole 20 mg PO HS 03/26/18 [History] Rosuvastatin Calcium [Crestor] 40 mg PO HS 03/26/18 [History] atenoloL [Tenormin] 50 mg PO HS 03/26/18 [History] Dicyclomine [Bentyl] 10 mg PO TID PRN 06/20/20 [History] HYDROcodone/APAP 10-325MG [[place] 10-325] 1 tab PO Q6HR PRN 06/20/20 [History] Aspirin [Adult Low Dose Aspirin EC] 81 mg PO BID #60 tablet. 06/24/20 [Rx] HYDROcodone/APAP 10-325MG [[place] 10-325] 1 tab PO Q4HR PRN #42 tab 06/24/20 [Rx] Follow up Appointment(s)/Referral(s): Raffi Metcalf MD [STAFF PHYSICIAN] - 07/04/20 1:30 pm [facility] Visiting Nurse, [NON-STAFF] - As Needed Patient Instructions/Handouts: Knee Replacement (DC) Activity/Diet/Wound Care/Special Instructions: Keep wound clean and dry Take meds as directed Follow-up with Dr. Metcalf in office Weight bear as tolerated May shower in 3 days if no bleeding Discharge Disposition: HOME WITH HOME HEALTH SERVICES
--- NOTE | 2020-06-24 19:13 | PN ---
PROGRESS NOTE DATE OF SERVICE: 06/24/2020 CHIEF COMPLAINT: Status post left TKA. HISTORY OF PRESENT ILLNESS: This gentleman is doing well. He has discomfort, but no fever, chills, shortness of breath, cough, etc. PHYSICAL EXAMINATION: Vital signs are normal. Chest is clear. Cardiac exam is sinus with no murmurs. Abdomen is soft, nontender. Dressing is dry. IMPRESSION: Status post left TKA. PLAN: Possibly home today or tomorrow. MMODL / IJN: [id number] /
--- NOTE | 2020-06-24 19:19 | CONS ---
CONSULTATION CHIEF COMPLAINT: Osteoarthritis of left knee. HISTORY OF PRESENT ILLNESS: This gentleman is brought in for an elective left TKA. He has a history of mild hypertension, hyperlipidemia, and he has also had intermittent episodes of diverticulitis, but is otherwise generally healthy. REVIEW OF SYSTEMS: He has had no TIAs, CVAs, neurologic problems, change in vision hearing, chest pain, shortness of breath, cough, angina, infarctions, orthopnea, PND, abdominal pain, fever, chills, nausea, vomiting, hematemesis, melena, hematochezia, renal failure, dysuria, frequency, urgency, nocturia, or incontinence. He is not diabetic. Past medical history, family history and personal and social histories can all be found in his prior hospital notes and admitting summary. PHYSICAL EXAMINATION: Blood pressure is 132/70 with a pulse of 64, respirations of 16 and he is afebrile. In general, he appeared to be well developed, well nourished, no acute distress. He is slightly overweight. Head, ears, eyes, nose, mouth, and throat were normal. Neck veins not distended. Carotids normal. Chest is clear. Cardiac exam demonstrates sinus rhythm. The abdomen is slightly protuberant, soft and nontender without visceromegaly or masses. Bowel sounds present. Extremities normal. Neurological is intact. IMPRESSION: 1. Osteoarthritis of the left knee. 2. Hypertension. 3. History of diverticulitis. RECOMMENDATIONS: None. He is excellent candidate for his elective procedure. Thank you for the consultation. YOUNG / DCN: [id number] /
[2020-06-24] MEDS ORDERED: NON FORMULARY DRUG (Aspirin Ec 325 MG Tablet.Dr) PO SCH (21:00)
[2020-06-24] MEDS ORDERED: atenoloL 50 MG TAB PO SCH (21:00)
[2020-06-24] MEDS ORDERED: DOXAZOSIN 4 MG TAB PO SCH (21:00)
[2020-06-24] MEDS ORDERED: ATORVASTATIN 80 MG TAB PO SCH (21:00)
[2020-06-24] MEDS ORDERED: LORATADINE 10 MG TAB PO SCH (21:00)
[2020-06-24] MEDS ORDERED: PANTOPRAZOLE 40 MG TABLET PO SCH (21:00)
[2020-06-24] MEDS ORDERED: FINASTERIDE 5 MG TAB PO SCH (21:00)
== END 2020-06-24 16:34 | disposition home health service (06) ==
LOC: OR 05:31 → 4SSUR 08:54 → OR 06-24 16:34
PROVIDERS: ATTEND Orthopaedic Surgery Sports Medicine
DX: M17.0 Bilateral primary osteoarthritis of knee (principal); M21.162 Varus deformity, not elsewhere classified, left knee; M21.161 Varus deformity, not elsewhere classified, right knee; M25.762 Osteophyte, left knee; N42.9 Disorder of prostate, unspecified; K21.9 Gastro-esophageal reflux disease without esophagitis; I10 Essential (primary) hypertension; E78.5 Hyperlipidemia, unspecified; Z79.82 Long term (current) use of aspirin; Z79.899 Other long term (current) drug therapy; Z87.19 Personal history of other diseases of the digestive system; Z87.891 Personal history of nicotine dependence; Z83.3 Family history of diabetes mellitus; Z82.49 Family history of ischemic heart disease and other diseases of the circulatory system
CPT/HCPCS: 97110; 97161; 64448; 76942; 85025; 88300; 73560; 27447; C1776; C1713; J2250; J0171; J1100; J0690 ×3; J2405; J2001; J3010; J1885; J2795 ×2; J2704; J0735; J1170 ×2

== ENCOUNTER → 2023-08-28 | Outpatient (CLI) | payer MEDICARE ==
--- NOTE | 2023-08-28 11:46 | US ---
EXAMINATION TYPE: US duplex aorta DATE OF EXAM: 08/28/2023 COMPARISON: 04/26/2019 CLINICAL INDICATION: Male, 73 years old with history of I70.0 ATHEROSCLEROSIS OF AORTA; Aortic calcif ication TECHNIQUE: Multiple sonographic images of the abdominal aorta are obtained. FINDINGS: EXAM MEASUREMENTS: Abdominal Aorta: Proximal: 2.3 x 2.8cm Mid: 2.6 x 2.7cm Distal: 4.2 x 3.7cm including calcifications. 3.0 x 3.7cm without Bifurcation: Right Illiac: 1.2 x 1.4cm Left Illiac: 1.3 x 1.3cm ASSISTANT PROFESSOR OF BUSINESS NOTES: technical limitations due to patient's body habitus and overlying bowel gas. calci fications noted. Distal AAA IMPRESSION: Infrarenal AAA appears to have increased in size possibly measuring up to 4.2 cm versus 2.9 cm back o n 04/26/2019. Prominent atherosclerotic calcifications does cause some difficulty in obtaining measure ments. Additional ectatic proximal and mid abdominal aorta up to 2.8 cm.
== END | disposition home or self-care (01) ==
LOC: RADUSWWP 08:39
PROVIDERS: ATTEND Family Medicine
DX: I71.43 Infrarenal abdominal aortic aneurysm, without rupture (principal); I70.0 Atherosclerosis of aorta
CPT/HCPCS: 93979

== ENCOUNTER 2024-05-27 07:21 | Day surgery (SDC) | payer MEDICARE ==
[2024-05-27] MEDS ORDERED: LIDOCAINE 1% (10MG/ML) FOR IV START INTRADERMA PRN (08:04)
[2024-05-27 08:12] VITALS: TEMP 97.8
[2024-05-27] MEDS: IV FLUID CONTINUATION 1,000 ML IV ONE (08:12)
[2024-05-27] MEDS: LACTATED RINGERS 1,000 ML IV SCH (08:14)
[2024-05-27] MEDS ORDERED: PROPOFOL 10 MG/ML 20 ML VIAL IV ONE (08:27)
[2024-05-27] MEDS ORDERED: LIDOCAINE 1% INJ 10MG/ML (20 ML MDV) ONE (08:27)
--- NOTE | 2024-05-27 08:54 | P.PCN ---
Date of Procedure: 05/27/24 Procedure(s) Performed: Brief history: Patient is a pleasant 72-year-old white male scheduled for an elective upper endoscopy as well as colonoscopy as a part of evaluation of long standing history of GERD and Hemoccult positive stool Procedure performed: Esophagogastroduodenoscopy with biopsy Colonoscopy Preoperative diagnosis: Longstanding history of GERD Hemoccult positive stool Anesthesia: MAC Procedure: After informed consent was obtained from the patient was brought into the endoscopy unit and IV sedation was administered by anesthesia under continuous monitoring. Initially upper endoscopy was done. The Olympus GF 160 video endoscope was inserted inserted into the mouth and esophagus intubated without any difficulty and was gradually advanced into the stomach and duodenum and carefully examined. The bulb and second part of the duodenum appeared normal. The scope was then withdrawn into the stomach adequately insufflated with air and upon careful examination the antrum had mild antral gastritis and biopsies were done from this area. Mucosa of the body, cardia and fundus appeared normal. The scope was then withdrawn into the esophagus. The GE junction was located at 40 cm to the incisors. It appeared regular with no erythema erosions or ulcerations. Rest of the esophagus appeared normal. Patient tolerated the procedure well. At this time the patient continued to remain sedation. Initial digital rectal examination was normal. Olympus CF 160 video colonoscope was then inserted into the rectum and gradually advanced to the cecum without any difficulty. Careful examination was performed as the scope was gradually being withdrawn. The prep was excellent. The cecum, ascending colon, transverse colon, descending colon, sigmoid colon and rectum appeared normal. Retroflexion was performed in the rectum and no lesions were noted. Scattered sigmoid diverticulosis. Patient tolerated the procedure well. Impression: 1. Upper endoscopy with mild antral gastritis but no evidence of esophagitis or Monzon's esophagus 2. Colonoscopy revealed scattered sigmoid diverticulosis but no evidence of colorectal neoplasia Recommendations: Findings of this examination were discussed with the patient as well as his family. He was advised to follow-up with the biopsy results. Continue with current medications and follow antireflux measures. Recommend repeat screening colonoscopy in 10 years.
[2024-05-27 09:20] VITALS: BP 155/92; PULSE 55; RESP 18
== END 2024-05-27 09:54 | disposition home or self-care (01) ==
LOC: ORWHC2ENDO 07:21
PROVIDERS: ATTEND Internal Medicine Gastroenterology
CPT/HCPCS: 43239; 45378; 88305